=== PATIENT | male | born 1975 | race Caucasian/White ===

== ENCOUNTER 2019-06-29 07:57 | Emergency (ER) | payer BC ==
[2019-06-29] MEDS ORDERED: Albuterol/Ipratropium 3.0-0.5 MG/3 ML Neb Soln ONE (08:09)
[2019-06-29] MEDS ORDERED: Albuterol/Ipratropium 3.0-0.5 MG/3 ML Neb Soln NEB ONE (08:09)
--- NOTE | 2019-06-29 08:13 | EDM.PDOC ---
ED HPI GENERAL MEDICAL PROBLEM - General Chief Complaint: Respiratory Problem Stated Complaint: SHORTNESS OF BREATH, VIOLENT COUGH Time Seen by Provider: 06/29/19 10:04 - History of Present Illness INITIAL COMMENTS - FREE TEXT/NARRATIVE: HISTORY AND PHYSICAL: History of present illness: Patient's 43-year-old white male with no significant past medical history except concern of cough and shortness of breath 1 week he states he had some chest tightness with this he is nonsmoker he denies known cardiac disease high cholesterol family history denies drugs. Review of systems: As per history of present illness and below otherwise all systems reviewed and negative. Past medical history: As per history of present illness and as reviewed below otherwise noncontributory. Surgical history: As per history of present illness and as reviewed below otherwise noncontributory. Social history: No reported history of drug or alcohol abuse. Family history: As per history of present illness and as reviewed below otherwise noncontributory. Physical exam: HEENT: Atraumatic, normocephalic, pupils reactive, negative for conjunctival pallor or scleral icterus, mucous membranes moist, throat clear, neck supple, nontender, trachea midline. Lungs: Diminished, breath sounds equal bilaterally, chest nontender. Heart: S1S2, regular, negative for clicks, rubs, or JVD. Abdomen: Soft, nondistended, nontender. Negative for masses or hepatosplenomegaly. Negative for costovertebral tenderness. Pelvis: Stable nontender. Genitourinary: Deferred. Rectal: Deferred. Extremities: Atraumatic, negative for cords or calf pain. Neurovascular unremarkable. Neuro: Awake, alert, oriented. Cranial nerves II through XII unremarkable. Cerebellum unremarkable. Motor and sensory unremarkable throughout. Exam nonfocal. Diagnostics: CBC CMP troponin PT/INR chest x-ray EKG influenza screen BNP Therapeutics: Albuterol ipratropium nebulizer Impression: #1 pneumonitis Definitive disposition and diagnosis as appropriate pending reevaluation and review of above. - Related Data Allergies Allergy/AdvReac Type Severity Reaction Status Date / Time No Known Allergies Allergy Verified 06/29/19 08:09 Home Meds: Home Meds Testosterone [Androderm] 1 each INJECT WEEKLY 06/29/19 [History] ED ROS GENERAL - Review of Systems Review Of Systems: Comprehensive ROS is negative, except as noted in HPI. ED EXAM, GENERAL - Physical Exam Exam: See Below (See dictation) Course - Vital Signs Last Recorded V/S: Last Vital Signs Temp 36.3 C 06/29/19 08:11 Pulse 99 06/29/19 08:11 Resp 18 06/29/19 08:11 BP 152/79 H 06/29/19 08:11 Pulse Ox 98 06/29/19 08:11 - Orders/Labs/Meds Orders: Active Orders 24 hr Category Date Time Status EKG Documentation Completion [RC] STAT Care 06/29/19 08:08 Active RT Aerosol Therapy [RC] ASDIRECTED Care 06/29/19 08:09 Active B-TYPE NATRIURETIC PEPTIDE,BNP [CHEM] Stat Lab 06/29/19 08:28 Received SUAD NOEL NUCLEIC ACID AMP [MREF] Stat Lab 06/29/19 08:13 Received UA RFX STEPHANIA AND CULT IF INDIC [URIN] Stat Lab 06/29/19 08:08 Ordered Labs: Laboratory Tests 06/29/19 06/29/19 06/29/19 Range/Units 08:28 08:28 08:28 WBC 10.62 (4.0-11.0) K/uL RBC 5.87 (4.50-5.90) M/uL Hgb 16.6 (13.0-17.0) g/dL Hct 48.6 (38.0-50.0) % MCV 82.8 (80.0-98.0) fL MCH 28.3 (27.0-32.0) pg MCHC 34.2 (31.0-37.0) g/dL RDW Std Deviation 44.0 (28.0-62.0) fl RDW Coeff of Akin 15 (11.0-15.0) % Plt Count 203 (150-400) K/uL MPV 10.40 (7.40-12.00) fL Neut % (Auto) 68.9 (48.0-80.0) % Lymph % (Auto) 20.5 (16.0-40.0) % Rush % (Auto) 9.0 (0.0-15.0) % Eos % (Auto) 1.4 (0.0-7.0) % Baso % (Auto) 0.2 (0.0-1.5) % Neut # (Auto) 7.3 H (1.4-5.7) K/uL Lymph # (Auto) 2.2 (0.6-2.4) K/uL Rush # (Auto) 1.0 H (0.0-0.8) K/uL Eos # (Auto) 0.2 (0.0-0.7) K/uL Baso # (Auto) 0.0 (0.0-0.1) K/uL Nucleated RBC % 0.0 /100WBC Nucleated RBCs # 0 K/uL INR 0.93 Sodium 137 (136-148) mmol/L Potassium 3.8 (3.5-5.1) mmol/L Chloride 102 (98-107) mmol/L Carbon Dioxide 26.3 (21.0-32.0) mmol/L BUN 11 (7.0-18.0) mg/dL Creatinine 1.3 (0.8-1.3) mg/dL Est Cr Clr Drug Dosing 82.08 mL/min Estimated GFR (MDRD) > 60.0 ml/min Glucose 103 (74-106) mg/dL Calcium 9.1 (8.5-10.1) mg/dL Total Bilirubin 0.7 (0.2-1.0) mg/dL AST 28 (15-37) IU/L ALT 39 (14-63) IU/L Alkaline Phosphatase 31 L (46-116) U/L Troponin I < 0.050 (0.000-0.056) ng/mL Total Protein 8.0 (6.4-8.2) g/dL Albumin 3.7 (3.4-5.0) g/dL Globulin 4.3 H (2.6-4.0) g/dL Albumin/Globulin Ratio 0.9 (0.9-1.6) Meds: Medications Discontinued Medications Generic Name Dose Route Start Last Admin Trade Name Freq PRN Reason Stop Dose Admin Acetaminophen/Codeine Phosphate 10 ml 06/29/19 09:13 06/29/19 09:18 Tylenol/Codeine 120-12 Mg/5 Ml PO 06/29/19 09:14 10 ml ONETIME ONE Administration Albuterol/Ipratropium 3 ml 06/29/19 08:09 06/29/19 08:11 Duoneb 3.0-0.5 Mg/3 Ml NEB 06/29/19 08:10 3 ml ONETIME ONE Administration Albuterol/Ipratropium Confirm 06/29/19 08:09 06/29/19 08:22 Duoneb 3.0-0.5 Mg/3 Ml Administered 06/29/19 08:10 Not Given Dose 3 ml .ROUTE .STK-MED ONE Ketorolac Tromethamine 60 mg 06/29/19 09:13 06/29/19 09:18 Toradol IM 06/29/19 09:14 60 mg ONETIME ONE Administration Departure - Departure Time of Disposition: 10:04 Disposition: Home, Self-Care 01 Condition: Good Clinical Impression: Pneumonitis - Discharge Information Referrals: Roland Aranda MD [Primary Care Provider] - Forms: ED Department Discharge Additional Instructions: The following information is given to patients seen in the emergency department who are being discharged to home. This information is to outline your options for follow-up care. We provide all patients seen in our emergency department with a follow-up referral. The need for follow-up, as well as the timing and circumstances, are variable depending upon the specifics of your emergency department visit. If you don't have a primary care physician on staff, we will provide you with a referral. We always advise you to contact your personal physician following an emergency department visit to inform them of the circumstance of the visit and for follow-up with them and/or the need for any referrals to a consulting specialist. The emergency department will also refer you to a specialist when appropriate. This referral assures that you have the opportunity for followup care with a specialist. All of these measure are taken in an effort to provide you with optimal care, which includes your followup. Under all circumstances we always encourage you to contact your private physician who remains a resource for coordinating your care. When calling for followup care, please make the office aware that this follow-up is from your recent emergency room visit. If for any reason you are refused follow-up, please contact the [facility] emergency department at and asked to speak to the emergency department charge nurse. Z-Sandoval Medrol Phenergan With Codeine albuterol as prescribed follow-up primary medical doctor as needed as discussed and return as needed as discussed - My Orders Last 24 Hours: My Active Orders 06/29/19 08:08 EKG Documentation Completion [RC] STAT UA RFX STEPHANIA AND CULT IF INDIC [URIN] Stat 06/29/19 08:09 RT Aerosol Therapy [RC] ASDIRECTED 06/29/19 08:13 BORD PERTUSS NUCLEIC ACID AMP [MREF] Stat 06/29/19 08:28 B-TYPE NATRIURETIC PEPTIDE,BNP [CHEM] Stat - Assessment/Plan Last 24 Hours: My Active Orders 06/29/19 08:08 EKG Documentation Completion [RC] STAT UA RFX STEPHANIA AND CULT IF INDIC [URIN] Stat 06/29/19 08:09 RT Aerosol Therapy [RC] ASDIRECTED 06/29/19 08:13 BORD PERTUSS NUCLEIC ACID AMP [MREF] Stat 06/29/19 08:28 B-TYPE NATRIURETIC PEPTIDE,BNP [CHEM] Stat
--- NOTE | 2019-06-29 08:53 | CR ---
INDICATION: Cough and congestion TECHNIQUE: Chest 1 view COMPARISON: None FINDINGS: Cardiovascular and mediastinum: Heart size and vasculature are normal in caliber and appearance. Lungs and pleural spaces: Lungs are clear. No sign of infiltrate or mass. No sign of pleural effusion. No pneumothorax. Bones and soft tissues: No significant findings. IMPRESSION: Unremarkable chest. Dictated by Leobardo Mays MD @ Jun 29 2019 8:51AM Signed by Dr. Leobardo Mays @ Jun 29 2019 8:52AM
[2019-06-29 09:10] LABS: BLOOD UREA NITROGEN,BUN 11 mg/dL (7.0-18.0); CARBON DIOXIDE,CO2 26.3 mmol/L (21.0-32.0); CHLORIDE,CL 102 mmol/L (98-107); GLUCOSE RANDOM 103 mg/dL (74-106); POTASSIUM,K 3.8 mmol/L (3.5-5.1); SODIUM,NA 137 mmol/L (136-148)
[2019-06-29] MEDS ORDERED: Ketorolac 60 MG/2 ML SDV IM ONE (09:13)
[2019-06-29] MEDS ORDERED: Acetaminophen/Codeine 120-12 MG/5 ML Soln 5 ML UD Cup PO ONE (09:13)
== END 2019-06-29 10:18 | disposition home or self-care (01) ==
LOC: MW.ED 07:57
DX: J18.9 Pneumonia, unspecified organism (principal)
CPT/HCPCS: 36415; 71045; 80053; 83880; 84484; 85025; 85610; 87804; 93005; 94640; 96372; 99285; A9270; J1885; 87798; 99283; J7620-GY

== ENCOUNTER 2019-10-26 17:57 | Inpatient (IN) | payer OTHER, BC ==
[2019-10-26] MEDS ORDERED: Sodium Chloride 0.9% 1,000 ML IV ONE (18:21)
[2019-10-26] MEDS ORDERED: Acetaminophen 500 MG Tab PO ONE (18:22)
[2019-10-26] MEDS ORDERED: Codeine/Promethazine 10-6.25 MG/5 ML Syrup 5 ML UD Cup PO STA (18:25)
--- NOTE | 2019-10-26 18:29 | EDM.PDOC ---
ED HPI GENERAL MEDICAL PROBLEM - General Chief Complaint: Respiratory Problem Stated Complaint: VIRUS PT Time Seen by Provider: 10/26/19 18:01 Source of Information: Reports: Patient History Limitations: Reports: No Limitations - History of Present Illness INITIAL COMMENTS - FREE TEXT/NARRATIVE: HISTORY AND PHYSICAL: History of present illness: Patient is a 44-year-old male who presents to the emergency room with complaints of cough, fever and shortness of breath over the past 4 days. Patient states last week he was in [place] for approximately 7 days during COVID- 19 pandemic (was exposed to "a lot of Europeans"). He returned home on 2019, and started having symptoms the day after. Has had a reported TMAX of 102 at home, increased SOB, and mild midsternal chest pain which he attribute to all his vigorous coughing. States the chest pain is localized and does not radiate anywhere. Chest pain worsens with coughing. "I tried to stay home as long as I could" but reports symptoms have progressively gotten worse. He has been using [id number] products such as TheraFlu and cough and cold medications without any relief. Initially he presented to [facility] clinic and was being seen by Dr. Sheth. He has already had an influenza and send out COVID-19 screening. Patient denies any headache, change in vision, syncope or near syncope. Denies any chest pain, back pain, abdominal pain, nausea, vomiting , diarrhea, constipation or dysuria. Has not noted any blood in urine or stool. Patient had been eating and drinking appropriately. Review of systems: As per history of present illness and below otherwise all systems reviewed and negative. Past medical history: As per history of present illness and as reviewed below otherwise noncontributory. Surgical history: As per history of present illness and as reviewed below otherwise noncontributory. Social history: See social history for further information Family history: As per history of present illness and as reviewed below otherwise noncontributory. Physical exam: General: Well-developed and well-nourished 44-year-old male. Alert and oriented. Nontoxic-appearing and in no acute distress. HEENT: Atraumatic, normocephalic, pupils equal and reactive bilaterally, negative for conjunctival pallor or scleral icterus, mucous membranes moist, TMs normal bilaterally, throat clear, neck supple, nontender, trachea midline. No drooling or trismus noted. No meningeal signs. No hot potato voice noted. Lungs: Diminished throughout with auscultation, breath sounds equal bilaterally , chest nontender. Dry harsh cough noted. Heart: S1S2, tachycardia with regular rate and rhythm without overt murmur Abdomen: Soft, nondistended, nontender. Negative for masses or hepatosplenomegaly. Negative for costovertebral tenderness. Skin: Skin appears flushed. Intact, warm, dry. No lesions or rashes noted. Extremities: Atraumatic, moves all extremities per self without difficulty or deficits, negative for cords or calf pain. Neurovascular unremarkable. Neuro: Awake, alert, oriented. Cranial nerves II through XII unremarkable. Cerebellum unremarkable. Motor and sensory unremarkable throughout. Exam nonfocal. Notes: Chest x-ray findings suspicious bilateral bronchitis as well as early right lower lobe pneumonia and possible early left lower lobe pneumonia. Nodular densities within the right upper chest. Patient's lab work shows no significant findings. Did call and discussed this case with Dr. Galicia about admission. Additional CT has been added at this time (Dr Noel, radiologist, recommend CT chest without contrast). Medications have been ordered to be administered prior to going to the floor. Patient is aware of diagnostic findings and also aware that he will be under droplet/respiratory contact precautions as we are awaiting his COVID-[address] chest shows patchy area of increased density within both lungs with more confluent densities in the lung bases, worse on the right side. This representing multifocal pneumonia. Diagnostics: CBC, CMP, Lactic, BC x 2, CXR, Troponin, EKG, CT chest Note: Influenza and COVID-19 was ordered per [employer]: Oxygen, IV fluids, Acetaminophen, Phenergan w/ Codeine, Rocephin, Azithromycin Impression: Pneumonia Plan: Inpatient admission to Med/Surg with telemetry Definitive disposition and diagnosis as appropriate pending reevaluation and review of above. back Pain Score (Numeric/FACES): 5 - Related Data Allergies Allergy/AdvReac Type Severity Reaction Status Date / Time No Known Allergies Allergy Verified 10/26/19 18:10 Home Meds: Home Meds Testosterone [Androderm] 1 each INJECT WEEKLY 06/29/19 [History] Past Medical History - Past Health History Medical/Surgical History: Denies Medical/Surgical History HEENT History: Reports: None Cardiovascular History: Reports: None Respiratory History: Reports: None Gastrointestinal History: Reports: None Genitourinary History: Reports: None Musculoskeletal History: Reports: None Neurological History: Reports: None Psychiatric History: Reports: None Endocrine/Metabolic History: Reports: None Hematologic History: Reports: None Immunologic History: Reports: None Oncologic (Cancer) History: Reports: None Dermatologic History: Reports: None - Infectious Disease History Infectious Disease History: Reports: None - Past Surgical History Head Surgeries/Procedures: Reports: None HEENT Surgical History: Reports: None Cardiovascular Surgical History: Reports: None Respiratory Surgical History: Reports: None GI Surgical History: Reports: Appendectomy Male Surgical History: Reports: None Endocrine Surgical History: Reports: None Neurological Surgical History: Reports: None Musculoskeletal Surgical History: Reports: None Oncologic Surgical History: Reports: None Dermatological Surgical History: Reports: None Social & Family History - Family History Family Medical History: Noncontributory - Tobacco Use Smoking Status *Q: Never Smoker Second Hand Smoke Exposure: No - Caffeine Use Caffeine Use: Reports: None - Recreational Drug Use Recreational Drug Use: No ED ROS GENERAL - Review of Systems Review Of Systems: Comprehensive ROS is negative, except as noted in HPI. ED EXAM, GENERAL - Physical Exam Exam: See Below (See dictation) Course - Vital Signs Last Recorded V/S: Last Vital Signs Temp 100.6 F 10/26/19 20:35 Pulse 107 H 10/26/19 20:35 Resp 20 10/26/19 20:35 BP 111/65 10/26/19 20:35 Pulse Ox 95 10/26/19 20:35 - Orders/Labs/Meds Orders: Active Orders 24 hr Category Date Time Status Admission Status [Patient Status] [ADT] Stat ADT 10/26/19 20:01 Active EKG Documentation Completion [RC] STAT Care 10/26/19 18:29 Active Oxygen Therapy, ED [RC] ASDIRECTED Care 10/26/19 20:13 Active CULTURE BLOOD [BC] Stat Lab 10/26/19 18:30 Received CULTURE BLOOD [BC] Stat Lab 10/26/19 18:41 Received Azithromycin [Zithromax] 500 mg Med 10/26/19 20:15 Active Sodium Chloride 0.9% [Normal Saline (AdvBag)] 250 ml IV ONETIME Sodium Chloride 0.9% [Normal Saline] 1,000 ml Med 10/26/19 19:14 Active IV STAT Blood Culture x2 Reflex Set [OM.PC] Stat Oth 10/26/19 18:22 Ordered Medication Orders Sodium Chloride (Normal Saline) 1,000 mls @ 125 mls/hr IV STAT ONE Stop: 10/27/19 03:13 Last Admin: 10/26/19 19:41 Dose: 125 mls/hr Azithromycin 500 mg/ Sodium (Chloride) 250 mls @ 250 mls/hr IV ONETIME [facility] Labs: Laboratory Tests 10/26/19 10/26/19 10/26/19 Range/Units 18:40 18:40 18:40 WBC 4.24 (4.0-11.0) K/uL RBC 6.26 H (4.50-5.90) M/uL Hgb 18.0 H (13.0-17.0) g/dL Hct 51.1 H (38.0-50.0) % MCV 81.6 (80.0-98.0) fL MCH 28.8 (27.0-32.0) pg MCHC 35.2 (31.0-37.0) g/dL RDW Std Deviation 39.0 (28.0-62.0) fl RDW Coeff of Akin 13 (11.0-15.0) % Plt Count 93 L (150-400) K/uL MPV 10.90 (7.40-12.00) fL Neut % (Auto) 70.7 (48.0-80.0) % Lymph % (Auto) 24.1 (16.0-40.0) % [place] % (Auto) 5.0 (0.0-15.0) % Eos % (Auto) 0.2 (0.0-7.0) % Baso % (Auto) 0.0 (0.0-1.5) % Neut # (Auto) 3.0 (1.4-5.7) K/uL Lymph # (Auto) 1.0 (0.6-2.4) K/uL [place] # (Auto) 0.2 (0.0-0.8) K/uL Eos # (Auto) 0.0 (0.0-0.7) K/uL Baso # (Auto) 0.0 (0.0-0.1) K/uL Nucleated RBC % 0.0 /100WBC Nucleated RBCs # 0 K/uL Lactate 1.4 (0.20-2.00) mmol/L Sodium 135 L (136-148) mmol/L Potassium 3.7 (3.5-5.1) mmol/L Chloride 98 (98-107) mmol/L Carbon Dioxide 28.8 (21.0-32.0) mmol/L BUN 16 (7.0-18.0) mg/dL Creatinine 1.3 (0.8-1.3) mg/dL Est Cr Clr Drug Dosing 81.25 mL/min Estimated GFR (MDRD) > 60.0 ml/min Glucose 87 (74-106) mg/dL Calcium 7.9 L (8.5-10.1) mg/dL Total Bilirubin 0.6 (0.2-1.0) mg/dL AST 53 H (15-37) IU/L ALT 48 (14-63) IU/L Alkaline Phosphatase 49 (46-116) U/L Troponin I (0.000-0.056) ng/mL Total Protein 6.9 (6.4-8.2) g/dL Albumin 3.1 L (3.4-5.0) g/dL Globulin 3.8 (2.6-4.0) g/dL Albumin/Globulin Ratio 0.8 L (0.9-1.6) 03/25/20 Range/Units 18:40 WBC (4.0-11.0) K/uL RBC (4.50-5.90) M/uL Hgb (13.0-17.0) g/dL Hct (38.0-50.0) % MCV (80.0-98.0) fL MCH (27.0-32.0) pg MCHC (31.0-37.0) g/dL RDW Std Deviation (28.0-62.0) fl RDW Coeff of Akin (11.0-15.0) % Plt Count (150-400) K/uL MPV (7.40-12.00) fL Neut % (Auto) (48.0-80.0) % Lymph % (Auto) (16.0-40.0) % [place]enden % (Auto) (0.0-15.0) % Eos % (Auto) (0.0-7.0) % Baso % (Auto) (0.0-1.5) % Neut # (Auto) (1.4-5.7) K/uL Lymph # (Auto) (0.6-2.4) K/uL [place]enden # (Auto) (0.0-0.8) K/uL Eos # (Auto) (0.0-0.7) K/uL Baso # (Auto) (0.0-0.1) K/uL Nucleated RBC % /100WBC Nucleated RBCs # K/uL Lactate (0.20-2.00) mmol/L Sodium (136-148) mmol/L Potassium (3.5-5.1) mmol/L Chloride (98-107) mmol/L Carbon Dioxide (21.0-32.0) mmol/L BUN (7.0-18.0) mg/dL Creatinine (0.8-1.3) mg/dL Est Cr Clr Drug Dosing mL/min Estimated GFR (MDRD) ml/min Glucose (74-106) mg/dL Calcium (8.5-10.1) mg/dL Total Bilirubin (0.2-1.0) mg/dL AST (15-37) IU/L ALT (14-63) IU/L Alkaline Phosphatase (46-116) U/L Troponin I < 0.050 (0.000-0.056) ng/mL Total Protein (6.4-8.2) g/dL Albumin (3.4-5.0) g/dL Globulin (2.6-4.0) g/dL Albumin/Globulin Ratio (0.9-1.6) Meds: Medications Generic Name Dose Route Start Last Admin Trade Name Freq PRN Reason Stop Dose Admin Sodium Chloride 1,000 mls @ 125 mls/hr 10/26/19 19:14 10/26/19 19:41 Normal Saline IV 10/27/19 03:13 125 mls/hr STAT ONE Administration Azithromycin 500 mg/ Sodium 250 mls @ 250 mls/hr 10/26/19 20:15 Chloride IV ONETIME SUNITHA Discontinued Medications Generic Name Dose Route Start Last Admin Trade Name Freq PRN Reason Stop Dose Admin Acetaminophen 1,000 mg 10/26/19 18:22 10/26/19 18:51 Tylenol Extra Strength PO 10/26/19 18:23 1,000 mg ONETIME ONE Administration Azithromycin 1,000 mg 10/26/19 20:15 Zithromax PO Q24H SUNITHA Sodium Chloride 1,000 mls @ 999 mls/hr 10/26/19 18:21 10/26/19 18:40 Normal Saline IV 10/26/19 19:21 999 mls/hr STAT ONE Administration Ceftriaxone Sodium/Dextrose 1 50 mls @ 100 mls/hr 10/26/19 20:02 10/26/19 20: 10 gm/ Premix IV 10/26/19 20:31 100 mls/hr ONETIME ONE Administration Ketorolac Tromethamine 30 mg 10/26/19 19:44 10/26/19 19:56 Toradol IVPUSH 10/26/19 19:45 30 mg ONETIME ONE Administration Promethazine HCl/Codeine 10 ml 10/26/19 18:25 10/26/19 18:51 Phenergan With Codeine PO 10/26/19 18:26 10 ml NOW STA Administration Departure - Departure Time of Disposition: 20:09 Disposition: Admitted As Inpatient 68 Clinical Impression: Pneumonia Qualifiers: Pneumonia type: due to unspecified organism Laterality: bilateral Lung location : lower lobe of lung Qualified Code(s): J18.9 - Pneumonia, unspecified organism - Discharge Information Forms: ED Department Discharge Sepsis Event Note - Evaluation Sepsis Screening Result: No Definite Risk - Focused Exam Vital Signs: Vital Signs Temp Temp Pulse Resp BP Pulse Ox 10/26/19 20:35 100.6 F 107 H 20 111/65 95 10/26/19 19:43 102.7 F H 117 H 23 H 133/52 L 94 L 10/26/19 19:21 102.7 F H 10/26/19 19:00 100.9 F H 114 H 22 H 146/84 H 96 10/26/19 18:51 100.9 F H 10/26/19 18:07 103.4 F H 135 H 20 144/93 H 94 L Date Exam was Performed: 10/26/19 Time Exam was Performed: 21:08 - My Orders Last 24 Hours: My Active Orders 10/26/19 18:22 Blood Culture x2 Reflex Set [OM.PC] Stat 10/26/19 18:29 EKG Documentation Completion [RC] STAT 10/26/19 18:30 CULTURE BLOOD [BC] Stat 10/26/19 18:41 CULTURE BLOOD [BC] Stat 10/26/19 19:14 Sodium Chloride 0.9% [Normal Saline] 1,000 ml IV STAT 10/26/19 20:01 Admission Status [Patient Status] [ADT] Stat 10/26/19 20:13 Oxygen Therapy, ED [RC] ASDIRECTED 10/26/19 20:15 Azithromycin [Zithromax] 500 mg Sodium Chloride 0.9% [Normal Saline (AdvBag)] 250 ml IV ONETIME - Assessment/Plan Last 24 Hours: My Active Orders 10/26/19 18:22 Blood Culture x2 Reflex Set [OM.PC] Stat 10/26/19 18:29 EKG Documentation Completion [RC] STAT 10/26/19 18:30 CULTURE BLOOD [BC] Stat 10/26/19 18:41 CULTURE BLOOD [BC] Stat 10/26/19 19:14 Sodium Chloride 0.9% [Normal Saline] 1,000 ml IV STAT 10/26/19 20:01 Admission Status [Patient Status] [ADT] Stat 10/26/19 20:13 Oxygen Therapy, ED [RC] ASDIRECTED 10/26/19 20:15 Azithromycin [Zithromax] 500 mg Sodium Chloride 0.9% [Normal Saline (AdvBag)] 250 ml IV ONETIME
[2019-10-26 19:34] LABS: BLOOD UREA NITROGEN,BUN 16 mg/dL (7.0-18.0); CARBON DIOXIDE,CO2 28.8 mmol/L (21.0-32.0); CHLORIDE,CL 98 mmol/L (98-107); GLUCOSE RANDOM 87 mg/dL (74-106); POTASSIUM,K 3.7 mmol/L (3.5-5.1); SODIUM,NA 135 mmol/L (136-148)
[2019-10-26] MEDS: Sodium Chloride 0.9% 1,000 ML IV ONE ×2 (19:41→23:12)
[2019-10-26] MEDS ORDERED: Ketorolac 30 MG/ML SDV IVPUSH ONE (19:44)
--- NOTE | 2019-10-26 19:50 | CR ---
Chest: 2 views of the chest were obtained. Comparison: Prior chest x-ray of 06/29/19. Slight increasing density within the right lung base is noted. Possible minimal increased density behind the left heart within the left lung base is also noted. Central lung markings are also minimally increased. Focal nodular density is noted within the right upper lung. Apical pleural thickening is seen. Heart size appears at the upper limits of normal. Bony structures are intact. Impression: 1. Findings suspicious for bilateral bronchitis as well as early right lower lobe pneumonia and possible early left lower lobe pneumonia. 2. Nodular density within the right upper chest. Recommend follow-up chest x-ray to see if this finding persists then warranting further testing. 3. Heart size at the upper limits of normal. Diagnostic code #3 This report was dictated in MDT
[2019-10-26] MEDS ORDERED: cefTRIAXone 1 GM in Premix Bag 1 BAG IV ONE (20:02)
[2019-10-26] MEDS ORDERED: Azithromycin 250 MG Tab PO SCH (20:15)
--- NOTE | 2019-10-26 21:05 | CT ---
CT chest Technique: Multiple axial sections through the chest were obtained. Intravenous contrast not utilized. Comparison: Prior chest x-ray performed earlier on the same day (7:24 PM. Findings: Small scattered areas of increased density within both upper lungs are seen. Nodule noted on chest x-ray is felt to correlate to one of the small areas of increased density. More confluent increased density is noted posteriorly within both lung bases, worse on the right side. Slight areas of increased density is noted within the right middle lobe. Mediastinum and hilar regions appear within normal limits. Aorta shows no aneurysm. No pericardial thickening is seen. Small low density finding is noted within the right lobe of the liver which has Hounsfield unit measurements of a cyst and measures approximately 9 mm. Bone window settings were reviewed which shows no acute osseous finding. Impression: 1. Patchy areas of increased density within both lungs with more confluent densities within the lung bases, worse on the right side. Findings are most likely are infectious representing multifocal pneumonia. 2. No nodule is seen within the right upper lung as noted on chest x-ray. This nodule is felt to correlate with one of these parenchymal densities. 3. No other acute findings are seen on noncontrast CT study of the chest. Diagnostic code #3 This report was dictated in MDT
[2019-10-26] MEDS: Azithromycin 500 MG in Sodium Chloride 0.9% 250 ML IV SCH (21:17)
[2019-10-26] MEDS ORDERED: Albuterol/Ipratropium 3.0-0.5 MG/3 ML Neb Soln NEB PRN (22:05)
[2019-10-26] MEDS ORDERED: Lactated Ringers 1,000 ML IV SCH (22:15)
--- NOTE | 2019-10-26 22:36 | PCM.HP.2 ---
H&P History of Present Illness - General Date of Service: 10/26/19 Admit Problem/Dx: Admission Diagnosis/Problem Admission Diagnosis/Problem Pneumonia Source of Information: Patient, Provider History Limitations: Reports: No Limitations - History of Present Illness Initial Comments - Free Text/Narative: Patient is a 44 y/o M with PMH of low testosterone on supplements, appendectomy , h/o recent travel from [place] came in with c/o SOB, coughing spells, fevers, chills, back pain, sweating. Patient came back to [facility] on Thursday and since then he has been having flu like symptoms which have gotten worse in last few days. also c/o associated loss of appetite and diarrhea, denied any sick contacts. Patient sent to see by his PCP today where he was found to be febrile and was checked for COVID-19 and sent to ER. In ER CT chest showed b/l multifocal pneumonia. Patient was started on IV antibiotics and admitted for further care. Denied chest pain, N/V, palpitations, syncope. Onset of Symptoms: Reports: Gradual Duration of Symptoms: Reports: Day(s): Location: Reports: Chest, Back Quality: Reports: Throbbing Severity: Moderate Improves with: Reports: None Worsens with: Reports: None back Pain Score (Numeric/FACES): 5 - Related Data Allergies/Adverse Reactions: Allergies Allergy/AdvReac Type Severity Reaction Status Date / Time No Known Allergies Allergy Verified 10/26/19 18:10 Home Medications: Home Meds Testosterone [Androderm] 1 each INJECT WEEKLY 06/29/19 [History] Past Medical History - Past Health History Medical/Surgical History: Denies Medical/Surgical History HEENT History: Reports: None Cardiovascular History: Reports: None Respiratory History: Reports: None Gastrointestinal History: Reports: None Genitourinary History: Reports: None Musculoskeletal History: Reports: None Neurological History: Reports: None Psychiatric History: Reports: None Endocrine/Metabolic History: Reports: None Hematologic History: Reports: None Immunologic History: Reports: None Oncologic (Cancer) History: Reports: None Dermatologic History: Reports: None - Infectious Disease History Infectious Disease History: Reports: None - Past Surgical History Head Surgeries/Procedures: Reports: None HEENT Surgical History: Reports: None Cardiovascular Surgical History: Reports: None Respiratory Surgical History: Reports: None GI Surgical History: Reports: Appendectomy Male Surgical History: Reports: None Endocrine Surgical History: Reports: None Neurological Surgical History: Reports: None Musculoskeletal Surgical History: Reports: None Oncologic Surgical History: Reports: None Dermatological Surgical History: Reports: None Social & Family History - Family History Family Medical History: Noncontributory - Tobacco Use Smoking Status *Q: Never Smoker Second Hand Smoke Exposure: No - Caffeine Use Caffeine Use: Reports: None - Recreational Drug Use Recreational Drug Use: No H&P Review of Systems - Review of Systems: Review Of Systems: See Below General: Reports: Fever, Chills, Malaise, Weakness, Fatigue, Night Sweats, Diaphoresis, Decreased Appetite Pulmonary: Reports: Shortness of Breath, Cough, Sputum. Denies: Wheezing, Hemoptysis Cardiovascular: Reports: Dyspnea on Exertion. Denies: Chest Pain, Palpitations , Orthopnea, PND, Edema, Lightheadedness Gastrointestinal: Reports: Anorexia, Diarrhea, Decreased Appetite. Denies: Abdominal Pain, Black Stool, Bloody Stool, Constipation Genitourinary: Denies: Dysuria, Frequency, Burning, Pain Musculoskeletal: Reports: Back Pain. Denies: Neck Pain, Shoulder Pain, Hand Pain, Leg Pain Skin: Reports: Erythema (from sunburn). Denies: Cyanosis, Jaundice, Mottled, Pallor Psychiatric: Denies: Confusion, Depression, Mood Lability Neurological: Denies: Confusion, Dizziness, Headache Exam - Exam Exam: See Below - Vital Signs Vital Signs: Last Vital Signs Temp 36.8 C 10/26/19 22:22 Pulse 99 10/26/19 22:22 Resp 20 10/26/19 22:22 BP 109/58 L 10/26/19 22:22 Pulse Ox 94 L 10/26/19 22:22 Weight: 92.986 kg - Exam Quality Assessment: Supplemental Oxygen General: Alert, Oriented Neck: Supple, Trachea Midline Lungs: Normal Respiratory Effort, Crackles, Rales Cardiovascular: Regular Rhythm, Normal S1, Normal S2, Tachycardia GI/Abdominal Exam: Normal Bowel Sounds, Soft, Non-Tender Peripheral Pulses: 3+: Dorsalis Pedis (L), Dorsalis Pedis (R) Skin: Warm - Patient Data Lab Results Last 24 hrs: Laboratory Results - last 24 hr 10/26/19 10/26/19 10/26/19 Range/Units 18:40 18:40 18:40 WBC 4.24 (4.0-11.0) K/uL RBC 6.26 H (4.50-5.90) M/uL Hgb 18.0 H (13.0-17.0) g/dL Hct 51.1 H (38.0-50.0) % MCV 81.6 (80.0-98.0) fL MCH 28.8 (27.0-32.0) pg MCHC 35.2 (31.0-37.0) g/dL RDW Std Deviation 39.0 (28.0-62.0) fl RDW Coeff of Akin 13 (11.0-15.0) % Plt Count 93 L (150-400) K/uL MPV 10.90 (7.40-12.00) fL Neut % (Auto) 70.7 (48.0-80.0) % Lymph % (Auto) 24.1 (16.0-40.0) % Hamilton % (Auto) 5.0 (0.0-15.0) % Eos % (Auto) 0.2 (0.0-7.0) % Baso % (Auto) 0.0 (0.0-1.5) % Neut # (Auto) 3.0 (1.4-5.7) K/uL Lymph # (Auto) 1.0 (0.6-2.4) K/uL Hamilton # (Auto) 0.2 (0.0-0.8) K/uL Eos # (Auto) 0.0 (0.0-0.7) K/uL Baso # (Auto) 0.0 (0.0-0.1) K/uL Nucleated RBC % 0.0 /100WBC Nucleated RBCs # 0 K/uL Lactate 1.4 (0.20-2.00) mmol/L Sodium 135 L (136-148) mmol/L Potassium 3.7 (3.5-5.1) mmol/L Chloride 98 (98-107) mmol/L Carbon Dioxide 28.8 (21.0-32.0) mmol/L BUN 16 (7.0-18.0) mg/dL Creatinine 1.3 (0.8-1.3) mg/dL Est Cr Clr Drug Dosing 81.25 mL/min Estimated GFR (MDRD) > 60.0 ml/min Glucose 87 (74-106) mg/dL Calcium 7.9 L (8.5-10.1) mg/dL Total Bilirubin 0.6 (0.2-1.0) mg/dL AST 53 H (15-37) IU/L ALT 48 (14-63) IU/L Alkaline Phosphatase 49 (46-116) U/L Troponin I (0.000-0.056) ng/mL Total Protein 6.9 (6.4-8.2) g/dL Albumin 3.1 L (3.4-5.0) g/dL Globulin 3.8 (2.6-4.0) g/dL Albumin/Globulin Ratio 0.8 L (0.9-1.6) 03/25/20 Range/Units 18:40 WBC (4.0-11.0) K/uL RBC (4.50-5.90) M/uL Hgb (13.0-17.0) g/dL Hct (38.0-50.0) % MCV (80.0-98.0) fL MCH (27.0-32.0) pg MCHC (31.0-37.0) g/dL RDW Std Deviation (28.0-62.0) fl RDW Coeff of Akin (11.0-15.0) % Plt Count (150-400) K/uL MPV (7.40-12.00) fL Neut % (Auto) (48.0-80.0) % Lymph % (Auto) (16.0-40.0) % Hamilton % (Auto) (0.0-15.0) % Eos % (Auto) (0.0-7.0) % Baso % (Auto) (0.0-1.5) % Neut # (Auto) (1.4-5.7) K/uL Lymph # (Auto) (0.6-2.4) K/uL Hamilton # (Auto) (0.0-0.8) K/uL Eos # (Auto) (0.0-0.7) K/uL Baso # (Auto) (0.0-0.1) K/uL Nucleated RBC % /100WBC Nucleated RBCs # K/uL Lactate (0.20-2.00) mmol/L Sodium (136-148) mmol/L Potassium (3.5-5.1) mmol/L Chloride (98-107) mmol/L Carbon Dioxide (21.0-32.0) mmol/L BUN (7.0-18.0) mg/dL Creatinine (0.8-1.3) mg/dL Est Cr Clr Drug Dosing mL/min Estimated GFR (MDRD) ml/min Glucose (74-106) mg/dL Calcium (8.5-10.1) mg/dL Total Bilirubin (0.2-1.0) mg/dL AST (15-37) IU/L ALT (14-63) IU/L Alkaline Phosphatase (46-116) U/L Troponin I < 0.050 (0.000-0.056) ng/mL Total Protein (6.4-8.2) g/dL Albumin (3.4-5.0) g/dL Globulin (2.6-4.0) g/dL Albumin/Globulin Ratio (0.9-1.6) Result Diagrams: 10/26/19 18:40 10/26/19 18:40 Sepsis Event Note - Evaluation Sepsis Screening Result: No Definite Risk - Focused Exam Vital Signs: Vital Signs Temp Temp Pulse Resp BP Pulse Ox Pulse Ox 10/26/19 22:22 36.8 C 99 20 109/58 L 94 L 10/26/19 22:01 37.8 C 94 20 117/67 96 10/26/19 21:18 101 H 21 H 110/58 L 93 L 10/26/19 21:00 96 10/26/19 20:35 38.1 C 107 H 20 111/65 95 10/26/19 19:43 39.3 C H 117 H 23 H 133/52 L 94 L 10/26/19 19:21 39.3 C H 10/26/19 19:00 38.3 C H 114 H 22 H 146/84 H 96 10/26/19 18:51 38.3 C H 10/26/19 18:07 39.7 C H 135 H 20 144/93 H 94 L Date Exam was Performed: 10/26/19 Time Exam was Performed: 22:40 - Problem List (1) Sepsis SNOMED Code(s): 46708473 ICD Code: A41.9 - SEPSIS, UNSPECIFIED ORGANISM Status: Acute Current Visit: Yes (2) Pneumonia SNOMED Code(s): 719273178 ICD Code: J18.9 - PNEUMONIA, UNSPECIFIED ORGANISM Status: Acute Current Visit: No Qualifiers: Pneumonia type: due to unspecified organism Laterality: bilateral Lung location: lower lobe of lung Qualified Code(s): J18.9 - Pneumonia, unspecified organism Problem List Initiated/Reviewed/Updated: Yes Orders Last 24hrs: Active Orders 24 hr Category Date Time Status Admission Status [Patient Status] [ADT] Stat ADT 10/26/19 20:01 Active Ambulate [RC] PER UNIT ROUTINE Care 10/26/19 22:06 Active Antiembolic Devices [RC] PER UNIT ROUTINE Care 10/26/19 22:07 Active Bedrest Bathroom Privileges [RC] ASDIRECTED Care 10/26/19 22:05 Active EKG Documentation Completion [RC] STAT Care 10/26/19 18:29 Active Oxygen Therapy [RC] PRN Care 10/26/19 22:05 Active Oxygen Therapy, ED [RC] ASDIRECTED Care 10/26/19 20:13 Active Pulse Oximetry [RC] PRN Care 10/26/19 22:06 Active RT Aerosol Therapy [RC] ASDIRECTED Care 10/26/19 22:08 Active VTE/DVT Education [RC] PER UNIT ROUTINE Care 10/26/19 22:05 Active Vital Signs [RC] Q4H Care 10/26/19 22:05 Active Clear Liquid Diet [DIET] Diet 10/27/19 Breakfast Active CRP [C-REACTIVE PROTEIN] [CHEM] Routine Lab 10/26/19 18:40 Received CULTURE BLOOD [BC] Stat Lab 10/26/19 18:30 Received CULTURE BLOOD [BC] Stat Lab 10/26/19 18:41 Received CULTURE SPUTUM + SMEAR [RM] Routine Lab 10/26/19 22:10 Ordered D Dimer [D-DIMER QUANTITATIVE] [COAG] Routine Lab 10/26/19 18:40 Received FERRITIN [CHEM] Routine Lab 10/26/19 18:40 Received LACTATE DEHYDROGENASE,LDH [CHEM] Routine Lab 10/26/19 18:40 Received SEDIMENTATION RATE AUTO [HEME] Routine Lab 10/26/19 18:40 Received UA W/MICROSCOPIC [URIN] Routine Lab 10/26/19 22:05 Ordered Acetaminophen [Tylenol] Med 10/26/19 23:30 Active 650 mg PO Q4H PRN Albuterol/Ipratropium [DuoNeb 3.0-0.5 MG/3 ML] Med 10/26/19 22:05 Active 3 ml NEB Q4HRRT PRN Azithromycin [Zithromax] 500 mg Med 10/26/19 20:15 Active Sodium Chloride 0.9% [Normal Saline (AdvBag)] 250 ml IV ONETIME Azithromycin [Zithromax] 500 mg Med 10/27/19 21:00 Active Sodium Chloride 0.9% [Normal Saline (AdvBag)] 250 ml IV Q24H Morphine Med 10/26/19 22:23 Active 1 mg IVPUSH Q4H PRN Sodium Chloride 0.9% [Normal Saline] 1,000 ml Med 10/26/19 19:14 Active IV STAT cefTRIAXone [Rocephin in Dextrose,Iso-Osm 1 GM/50 ML] 1 Med 10/27/19 20:00 Active gm Premix Bag 1 bag IV Q24H Blood Culture x2 Reflex Set [OM.PC] Stat Oth 10/26/19 18:22 Ordered Sequential Compression Device [OM.PC] Per Unit Routine Oth 10/26/19 22:06 Ordered Resuscitation Status Routine Resus Stat 10/26/19 22:05 Ordered Medication Orders Acetaminophen (Tylenol) 650 mg PO Q4H PRN PRN Reason: Pain (Mild 1-3)/fever Albuterol/Ipratropium (Duoneb 3.0-0.5 Mg/3 Ml) 3 ml NEB Q4HRRT PRN PRN Reason: Shortness Of Breath/wheezing Sodium Chloride (Normal Saline) 1,000 mls @ 125 mls/hr IV STAT ONE Stop: 10/27/19 03:13 Last Admin: 10/26/19 19:41 Dose: 125 mls/hr Azithromycin 500 mg/ Sodium (Chloride) 250 mls @ 250 mls/hr IV ONETIME SUNITHA Last Admin: 10/26/19 21:17 Dose: 250 mls/hr Ceftriaxone Sodium/Dextrose 1 (gm/ Premix) 50 mls @ 100 mls/hr IV Q24H SUNITHA Azithromycin 500 mg/ Sodium (Chloride) 250 mls @ 250 mls/hr IV Q24H SUNITHA Morphine Sulfate (Morphine) 1 mg IVPUSH Q4H PRN PRN Reason: Pain Assessment/Plan Comment:: 44 y/o M admitted for sepsis secondary to multifocal pneumonia cont IV azithromycin and ceftriaxone Cont IV fluids resuscitation, BP is stable so far Start DuoNebs PRN SOB Oxygen as needed Will check D-dimer, ferritin, LDH, ESR, CRP F/U on COVID_19 results Monitor and replete electrolytes SCD for DVT ppx Anticipate 2-3 midnight stays
[2019-10-26] MEDS: Morphine 2 MG/ML Syringe IVPUSH PRN (23:13)
[2019-10-27] MEDS: Acetaminophen 325 MG Tab PO PRN ×5 (03:55→22:04)
[2019-10-27] MEDS: Morphine 2 MG/ML Syringe IVPUSH PRN ×5 (03:56→22:06)
[2019-10-27] MEDS: guaiFENesin 100 MG/5 ML Soln 5 ML UD Cup PO PRN ×2 (05:31→09:38)
[2019-10-27 06:31] LABS: BLOOD UREA NITROGEN,BUN 17 mg/dL (7.0-18.0); CARBON DIOXIDE,CO2 26.6 mmol/L (21.0-32.0); CHLORIDE,CL 103 mmol/L (98-107); GLUCOSE RANDOM 88 mg/dL (74-106); POTASSIUM,K 3.9 mmol/L (3.5-5.1); SODIUM,NA 136 mmol/L (136-148)
[2019-10-27] MEDS ORDERED: Magnesium Sulfate/Water 2 GM in Premix Bag 1 BAG IV ONE (07:37)
[2019-10-27] MEDS ORDERED: Calcium Carbonate 500 MG Tab.Chew PO ONE (07:38)
[2019-10-27] MEDS ORDERED: Azithromycin 500 MG Vial IV SCH (09:00)
[2019-10-27] MEDS ORDERED: Sodium Chloride 0.9% 1,000 ML IV ONE (09:14)
[2019-10-27] MEDS: Phosphorus #1 250 MG Tab PO SCH ×2 (11:06→17:42)
[2019-10-27] MEDS: Albuterol/Ipratropium 4 GM Inhalation Spray INH PRN ×2 (11:25→16:31)
[2019-10-27] MEDS ORDERED: Hydroxychloroquine 200 MG Tab PO SCH (12:00)
[2019-10-27] MEDS: Sodium Chloride 0.9% 1,000 ML IV SCH ×2 (12:05→20:10)
--- NOTE | 2019-10-27 12:34 | PCM.PN ---
- General Info Date of Service: 10/27/19 Subjective Update: Reports breathing has not improved much overnight and still feels SOB and coughing a lot. Has not had any appetite. - Patient Data Vitals - Most Recent: Last Vital Signs Temp 99.2 F 10/27/19 07:25 Pulse 100 10/27/19 07:25 Resp 18 10/27/19 07:25 BP 93/48 L 10/27/19 07:25 Pulse Ox 95 10/27/19 07:25 Weight - Most Recent: 205 lb I&O - Last 24 Hours: Intake & Output 10/26/19 10/27/19 10/27/19 22:59 06:59 14:59 Intake Total 848 Output Total 450 Balance 398 Lab Results Last 24 Hours: Laboratory Results - last 24 hr 10/26/19 10/26/19 10/26/19 Range/Units 18:40 18:40 18:40 WBC 4.24 (4.0-11.0) K/uL RBC 6.26 H (4.50-5.90) M/uL Hgb 18.0 H (13.0-17.0) g/dL Hct 51.1 H (38.0-50.0) % MCV 81.6 (80.0-98.0) fL MCH 28.8 (27.0-32.0) pg MCHC 35.2 (31.0-37.0) g/dL RDW Std Deviation 39.0 (28.0-62.0) fl RDW Coeff of Akin 13 (11.0-15.0) % Plt Count 93 L (150-400) K/uL MPV 10.90 (7.40-12.00) fL Neut % (Auto) 70.7 (48.0-80.0) % Lymph % (Auto) 24.1 (16.0-40.0) % [place] % (Auto) 5.0 (0.0-15.0) % Eos % (Auto) 0.2 (0.0-7.0) % Baso % (Auto) 0.0 (0.0-1.5) % Neut # (Auto) 3.0 (1.4-5.7) K/uL Lymph # (Auto) 1.0 (0.6-2.4) K/uL [place] # (Auto) 0.2 (0.0-0.8) K/uL Eos # (Auto) 0.0 (0.0-0.7) K/uL Baso # (Auto) 0.0 (0.0-0.1) K/uL Nucleated RBC % 0.0 /100WBC Nucleated RBCs # 0 K/uL ESR (0-14) mm/hr D-Dimer, Quantitative (0.0-0.50) mg/L FEU Lactate 1.4 (0.20-2.00) mmol/L Sodium 135 L (136-148) mmol/L Potassium 3.7 (3.5-5.1) mmol/L Chloride 98 (98-107) mmol/L Carbon Dioxide 28.8 (21.0-32.0) mmol/L BUN 16 (7.0-18.0) mg/dL Creatinine 1.3 (0.8-1.3) mg/dL Est Cr Clr Drug Dosing 81.25 mL/min Estimated GFR (MDRD) > 60.0 ml/min Glucose 87 (74-106) mg/dL Calcium 7.9 L (8.5-10.1) mg/dL Phosphorus (2.6-4.7) mg/dL Magnesium (1.8-2.4) mg/dL Ferritin (26-388) ng/mL Total Bilirubin 0.6 (0.2-1.0) mg/dL AST 53 H (15-37) IU/L ALT 48 (14-63) IU/L Alkaline Phosphatase 49 (46-116) U/L Lactate Dehydrogenase (81-234) U/L Troponin I (0.000-0.056) ng/mL C-Reactive Protein (0.00-0.90) mg/dL Total Protein 6.9 (6.4-8.2) g/dL Albumin 3.1 L (3.4-5.0) g/dL Globulin 3.8 (2.6-4.0) g/dL Albumin/Globulin Ratio 0.8 L (0.9-1.6) Urine Color Urine Appearance Urine pH (5.0-8.0) Ur Specific [place] (1.001-1.035) Urine Protein (NEGATIVE) mg/dL Urine Glucose (UA) (NEGATIVE) mg/dL Urine Ketones (NEGATIVE) mg/dL Urine Occult Blood (NEGATIVE) Urine Nitrite (NEGATIVE) Urine Bilirubin (NEGATIVE) Urine Urobilinogen (<2.0) EU/dL Ur Leukocyte Esterase (NEGATIVE) Urine RBC (0-2/HPF) Urine WBC (0-5/HPF) Ur Epithelial Cells (NONE-FEW) Urine Bacteria (NEGATIVE) Urine Mucus (NONE-MOD) 10/26/19 10/26/19 10/26/19 Range/Units 18:40 18:40 18:40 WBC (4.0-11.0) K/uL RBC (4.50-5.90) M/uL Hgb (13.0-17.0) g/dL Hct (38.0-50.0) % MCV (80.0-98.0) fL MCH (27.0-32.0) pg MCHC (31.0-37.0) g/dL RDW Std Deviation (28.0-62.0) fl RDW Coeff of Akin (11.0-15.0) % Plt Count (150-400) K/uL MPV (7.40-12.00) fL Neut % (Auto) (48.0-80.0) % Lymph % (Auto) (16.0-40.0) % [place] % (Auto) (0.0-15.0) % Eos % (Auto) (0.0-7.0) % Baso % (Auto) (0.0-1.5) % Neut # (Auto) (1.4-5.7) K/uL Lymph # (Auto) (0.6-2.4) K/uL [place] # (Auto) (0.0-0.8) K/uL Eos # (Auto) (0.0-0.7) K/uL Baso # (Auto) (0.0-0.1) K/uL Nucleated RBC % /100WBC Nucleated RBCs # K/uL ESR 2 (0-14) mm/hr D-Dimer, Quantitative 0.97 H (0.0-0.50) mg/L FEU Lactate (0.20-2.00) mmol/L Sodium (136-148) mmol/L Potassium (3.5-5.1) mmol/L Chloride (98-107) mmol/L Carbon Dioxide (21.0-32.0) mmol/L BUN (7.0-18.0) mg/dL Creatinine (0.8-1.3) mg/dL Est Cr Clr Drug Dosing mL/min Estimated GFR (MDRD) ml/min Glucose (74-106) mg/dL Calcium (8.5-10.1) mg/dL Phosphorus (2.6-4.7) mg/dL Magnesium (1.8-2.4) mg/dL Ferritin (26-388) ng/mL Total Bilirubin (0.2-1.0) mg/dL AST (15-37) IU/L ALT (14-63) IU/L Alkaline Phosphatase (46-116) U/L Lactate Dehydrogenase (81-234) U/L Troponin I < 0.050 (0.000-0.056) ng/mL C-Reactive Protein (0.00-0.90) mg/dL Total Protein (6.4-8.2) g/dL Albumin (3.4-5.0) g/dL Globulin (2.6-4.0) g/dL Albumin/Globulin Ratio (0.9-1.6) Urine Color Urine Appearance Urine pH (5.0-8.0) Ur Specific [place] (1.001-1.035) Urine Protein (NEGATIVE) mg/dL Urine Glucose (UA) (NEGATIVE) mg/dL Urine Ketones (NEGATIVE) mg/dL Urine Occult Blood (NEGATIVE) Urine Nitrite (NEGATIVE) Urine Bilirubin (NEGATIVE) Urine Urobilinogen (<2.0) EU/dL Ur Leukocyte Esterase (NEGATIVE) Urine RBC (0-2/HPF) Urine WBC (0-5/HPF) Ur Epithelial Cells (NONE-FEW) Urine Bacteria (NEGATIVE) Urine Mucus (NONE-MOD) 10/26/19 10/26/19 10/27/19 Range/Units 18:40 18:40 02:50 WBC (4.0-11.0) K/uL RBC (4.50-5.90) M/uL Hgb (13.0-17.0) g/dL Hct (38.0-50.0) % MCV (80.0-98.0) fL MCH (27.0-32.0) pg MCHC (31.0-37.0) g/dL RDW Std Deviation (28.0-62.0) fl RDW Coeff of Akin (11.0-15.0) % Plt Count (150-400) K/uL MPV (7.40-12.00) fL Neut % (Auto) (48.0-80.0) % Lymph % (Auto) (16.0-40.0) % [place] % (Auto) (0.0-15.0) % Eos % (Auto) (0.0-7.0) % Baso % (Auto) (0.0-1.5) % Neut # (Auto) (1.4-5.7) K/uL Lymph # (Auto) (0.6-2.4) K/uL [place] # (Auto) (0.0-0.8) K/uL Eos # (Auto) (0.0-0.7) K/uL Baso # (Auto) (0.0-0.1) K/uL Nucleated RBC % /100WBC Nucleated RBCs # K/uL ESR (0-14) mm/hr D-Dimer, Quantitative (0.0-0.50) mg/L FEU Lactate (0.20-2.00) mmol/L Sodium (136-148) mmol/L Potassium (3.5-5.1) mmol/L Chloride (98-107) mmol/L Carbon Dioxide (21.0-32.0) mmol/L BUN (7.0-18.0) mg/dL Creatinine (0.8-1.3) mg/dL Est Cr Clr Drug Dosing mL/min Estimated GFR (MDRD) ml/min Glucose (74-106) mg/dL Calcium (8.5-10.1) mg/dL Phosphorus (2.6-4.7) mg/dL Magnesium (1.8-2.4) mg/dL Ferritin 1322 H (26-388) ng/mL Total Bilirubin (0.2-1.0) mg/dL AST (15-37) IU/L ALT (14-63) IU/L Alkaline Phosphatase (46-116) U/L Lactate Dehydrogenase 647 H (81-234) U/L Troponin I (0.000-0.056) ng/mL C-Reactive Protein 10.00 H (0.00-0.90) mg/dL Total Protein (6.4-8.2) g/dL Albumin (3.4-5.0) g/dL Globulin (2.6-4.0) g/dL Albumin/Globulin Ratio (0.9-1.6) Urine Color YELLOW Urine Appearance CLEAR Urine pH 6.0 (5.0-8.0) Ur Specific [place] 1.025 (1.001-1.035) Urine Protein NEGATIVE (NEGATIVE) mg/dL Urine Glucose (UA) NEGATIVE (NEGATIVE) mg/dL Urine Ketones NEGATIVE (NEGATIVE) mg/dL Urine Occult Blood NEGATIVE (NEGATIVE) Urine Nitrite NEGATIVE (NEGATIVE) Urine Bilirubin NEGATIVE (NEGATIVE) Urine Urobilinogen 0.2 (<2.0) EU/dL Ur Leukocyte Esterase NEGATIVE (NEGATIVE) Urine RBC NONE SEEN (0-2/HPF) Urine WBC 0-1 (0-5/HPF) Ur Epithelial Cells RARE (NONE-FEW) Urine Bacteria FEW (NEGATIVE) Urine Mucus LIGHT (NONE-MOD) 10/27/19 10/27/19 Range/Units 05:48 05:48 WBC 3.91 L (4.0-11.0) K/uL RBC 5.51 (4.50-5.90) M/uL Hgb 15.6 (13.0-17.0) g/dL Hct 45.6 (38.0-50.0) % MCV 82.8 (80.0-98.0) fL MCH 28.3 (27.0-32.0) pg MCHC 34.2 (31.0-37.0) g/dL RDW Std Deviation 39.4 (28.0-62.0) fl RDW Coeff of Akin 13 (11.0-15.0) % Plt Count 84 L (150-400) K/uL MPV 11.00 (7.40-12.00) fL Neut % (Auto) 70.8 (48.0-80.0) % Lymph % (Auto) 24.0 (16.0-40.0) % [place] % (Auto) 4.9 (0.0-15.0) % Eos % (Auto) 0.0 (0.0-7.0) % Baso % (Auto) 0.3 (0.0-1.5) % Neut # (Auto) 2.8 (1.4-5.7) K/uL Lymph # (Auto) 0.9 (0.6-2.4) K/uL [place] # (Auto) 0.2 (0.0-0.8) K/uL Eos # (Auto) 0.0 (0.0-0.7) K/uL Baso # (Auto) 0.0 (0.0-0.1) K/uL Nucleated RBC % 0.0 /100WBC Nucleated RBCs # 0 K/uL ESR (0-14) mm/hr D-Dimer, Quantitative (0.0-0.50) mg/L FEU Lactate (0.20-2.00) mmol/L Sodium 136 (136-148) mmol/L Potassium 3.9 (3.5-5.1) mmol/L Chloride 103 (98-107) mmol/L Carbon Dioxide 26.6 (21.0-32.0) mmol/L BUN 17 (7.0-18.0) mg/dL Creatinine 1.3 (0.8-1.3) mg/dL Est Cr Clr Drug Dosing 81.25 mL/min Estimated GFR (MDRD) > 60.0 ml/min Glucose 88 (74-106) mg/dL Calcium 7.3 L (8.5-10.1) mg/dL Phosphorus 2.3 L (2.6-4.7) mg/dL Magnesium 1.6 L (1.8-2.4) mg/dL Ferritin (26-388) ng/mL Total Bilirubin (0.2-1.0) mg/dL AST (15-37) IU/L ALT (14-63) IU/L Alkaline Phosphatase (46-116) U/L Lactate Dehydrogenase (81-234) U/L Troponin I (0.000-0.056) ng/mL C-Reactive Protein (0.00-0.90) mg/dL Total Protein (6.4-8.2) g/dL Albumin (3.4-5.0) g/dL Globulin (2.6-4.0) g/dL Albumin/Globulin Ratio (0.9-1.6) Urine Color Urine Appearance Urine pH (5.0-8.0) Ur Specific [place] (1.001-1.035) Urine Protein (NEGATIVE) mg/dL Urine Glucose (UA) (NEGATIVE) mg/dL Urine Ketones (NEGATIVE) mg/dL Urine Occult Blood (NEGATIVE) Urine Nitrite (NEGATIVE) Urine Bilirubin (NEGATIVE) Urine Urobilinogen (<2.0) EU/dL Ur Leukocyte Esterase (NEGATIVE) Urine RBC (0-2/HPF) Urine WBC (0-5/HPF) Ur Epithelial Cells (NONE-FEW) Urine Bacteria (NEGATIVE) Urine Mucus (NONE-MOD) Med Orders - Current: Current Medications Acetaminophen (Tylenol) 650 mg PO Q4H PRN PRN Reason: Pain (Mild 1-3)/fever Last Admin: 10/27/19 11:06 Dose: 650 mg Albuterol/Ipratropium (Combivent Respimat) 0 gm INH Q4H PRN PRN Reason: Dyspnea Last Admin: 10/27/19 11:25 Dose: 1 puff Guaifenesin/Codeine Phosphate (Robitussin Ac) 5 ml PO Q4H PRN PRN Reason: Cough Hydroxychloroquine Sulfate (Plaquenil) 400 mg PO BID COUNT INCLUDES THE [facility] Stop: 10/27/19 21:01 Azithromycin 500 mg/ Sodium (Chloride) 250 mls @ 250 mls/hr IV ONETIME SUNITHA Last Admin: 10/26/19 21:17 Dose: 250 mls/hr Ceftriaxone Sodium/Dextrose 1 (gm/ Premix) 50 mls @ 100 mls/hr IV Q24H SUNITHA Azithromycin 500 mg/ Sodium (Chloride) 250 mls @ 250 mls/hr IV Q24H SUNITHA Sodium Chloride (Normal Saline) 1,000 mls @ 125 mls/hr IV Q8H SUNITHA Morphine Sulfate (Morphine) 1 mg IVPUSH Q4H PRN PRN Reason: Pain Last Admin: 10/27/19 08:56 Dose: 1 mg Sodium Phosphate (Neutra-Phos) 250 mg PO QID SUNITHA Stop: 10/28/19 06:01 Last Admin: 10/27/19 11:06 Dose: 250 mg Discontinued Medications Acetaminophen (Tylenol Extra Strength) 1,000 mg PO ONETIME ONE Stop: 10/26/19 18:23 Last Admin: 10/26/19 18:51 Dose: 1,000 mg Albuterol/Ipratropium (Duoneb 3.0-0.5 Mg/3 Ml) 3 ml NEB Q4HRRT PRN PRN Reason: Shortness Of Breath/wheezing Last Admin: 10/26/19 23:12 Dose: 3 ml Azithromycin (Zithromax) 1,000 mg PO Q24H SUNITHA Calcium Carbonate/Glycine (Tums) 1,000 mg PO ONETIME ONE Stop: 10/27/19 07:39 Last Admin: 10/27/19 08:36 Dose: 1,000 mg Guaifenesin (Robitussin) 100 mg PO Q4H PRN PRN Reason: Cough Last Admin: 10/27/19 09:38 Dose: 100 mg Sodium Chloride (Normal Saline) 1,000 mls @ 999 mls/hr IV STAT ONE Stop: 10/26/19 19:21 Last Admin: 10/26/19 18:40 Dose: 999 mls/hr Sodium Chloride (Normal Saline) 1,000 mls @ 125 mls/hr IV STAT ONE Stop: 10/27/19 03:13 Last Admin: 10/26/19 23:12 Dose: 125 mls/hr Ceftriaxone Sodium/Dextrose 1 (gm/ Premix) 50 mls @ 100 mls/hr IV ONETIME ONE Stop: 10/26/19 20:31 Last Admin: 10/26/19 20:10 Dose: 100 mls/hr Lactated Ringer's (Ringers, Lactated) 1,000 mls @ 125 mls/hr IV ASDIRECTED COUNT INCLUDES THE [facility] Magnesium Sulfate 2 gm/ Premix 50 mls @ 50 mls/hr IV ONETIME ONE Stop: 10/27/19 08:36 Last Admin: 10/27/19 08:36 Dose: 50 mls/hr Sodium Chloride (Normal Saline) 1,000 mls @ 999 mls/hr IV STAT ONE Stop: 10/27/19 10:14 Last Admin: 10/27/19 09:37 Dose: 999 mls/hr Ketorolac Tromethamine (Toradol) 30 mg IVPUSH ONETIME ONE Stop: 10/26/19 19:45 Last Admin: 10/26/19 19:56 Dose: 30 mg Promethazine HCl/Codeine (Phenergan With Codeine) 10 ml PO NOW STA Stop: 10/26/19 18:26 Last Admin: 10/26/19 18:51 Dose: 10 ml - Exam General: Alert, Oriented, Cooperative, Other (fatigued) Lungs: Other (quiet breath sounds b/l, coughs when asked to take a deep breath.) Cardiovascular: Regular Rate, Regular Rhythm GI/Abdominal Exam: Normal Bowel Sounds, Soft, Non-Tender, No Distention Extremities: Normal Inspection, No Pedal Edema Skin: Warm, Dry, Intact Sepsis Event Note - Evaluation Sepsis Screening Result: No Definite Risk - Focused Exam Vital Signs: Vital Signs Temp Temp Pulse Resp BP Pulse Ox 10/27/19 07:25 99.2 F 100 18 93/48 L 95 10/27/19 05:35 97.8 F 10/27/19 04:06 100.0 F 112 H 19 106/49 L 96 10/27/19 03:55 100 F Date Exam was Performed: 10/27/19 Time Exam was Performed: 13:18 - Problem List Review Problem List Initiated/Reviewed/Updated: Yes - My Orders Last 24 Hours: My Active Orders 10/27/19 09:27 Albuterol/Ipratropium [Combivent Respimat] See Dose Instructions INH Q4H PRN 10/27/19 09:28 RT Post Treatment Assessment [RC] Click to Edit RT Pre-Treatment Assessment [RC] Click to Edit 10/27/19 12:00 Phosphorus #1 [Neutra-Phos] 250 mg PO QID 10/28/19 05:11 CBC WITH AUTO DIFF [HEME] AM COMPREHENSIVE METABOLIC PN,CMP [CHEM] AM MAGNESIUM [CHEM] AM PHOSPHORUS [CHEM] AM - Plan Plan:: Assessment and Plan: 1. Sepsis secondary to multifocal community acquired pneumonia with suspicion of COVID19: - Continue IV ceftriaxone and azithromycin, duonebs INH MDI q4 prn, IV NS 125 cc /hr and supplemental oxygen. D-dimer, ferritin and LDH are elevated. Will also order urine strep pneumonia and legionella antigen. As patient's respiratory status has not improved overnight and patient has had low blood pressure readings, will transfer patient to ICU for closer monitoring as patient is at risk for decompensating quickly. EKG on admission showed normal QT interval. Consulted eICU who recommended holding off on starting hydroxychloroquine at this time until COVID19 testing has resulted. 2. DVT prophylaxis: SCD's.
--- NOTE | 2019-10-27 15:14 | PN ---
[facility] Physician - Brief Progress [id number]/26/2020 12:46[facility] Kathryn Tompkins, [place] - DAXA (TROY) - DAXA ROYA MANTILLADate of Service 10/27/2019 12:46HPI/ Events of Note eICU admission [id number] male with no significant past medical history presented to hospital with shortness of breath. Patient mentions that over the last few days he has been havi ng worsening dyspnea, cough along with fevers chills and back pain. Patient mentions that he recentl y came from [place] about 4 days prior to admission. Patient was started on ceftriaxone and azithromy lai given his CT was significant for bilateral multifocal infiltrates. Patient was transferred to [facility] ICU for closer monitoring in the setting of being ruled out for COVID 19. Patient seen on camera la rick flat in bed, nasal canula/droplet mask present. No acute distress, occasional coughs. Vital sign s reviewedLabs/EMR/imagingAcute hypoxic respiratory failure-Secondary to PNA. Suspected viral vs bact erial-Agree with continuing CAP coverage for now. Can consider sending Legionella/Strep urine. If con sidering sending MRSA nares/Sputum cultures will need to be handled with special instructions given C OVID rule out. -Agree with COVID rule out. PPE and Isolation per institution policy. -Recommend holdi ng off on starting Plaquanil as patient is currently on 2L O2 and COVID has not resulted. We can assi st with further managent if patient if has worsening hypoxic resp failure. Combination of Plaquanil a nd Azithro can can cause QTc prolongation. -CT does show evidence of biapical scarring vs cystic lin ges, No cavitary lesion noted and patient did not have hemoptysis per EMR thus low suspicion for TB. -Recommend Mg replacment to keep >2. -Wean O2 as tolerated. DVT prophy- SCD's orderedGI prophy- Not indicatedInterventions Major-Hypoxemia - evaluation and management, Infection - evaluation and manag ement
[2019-10-27] MEDS: Codeine/guaiFENesin 10-100 MG/5 ML Syrup 5 ML Cup PO PRN ×2 (15:29→20:14)
[2019-10-27] MEDS: Benzonatate 100 MG Cap PO PRN (19:00)
[2019-10-27] MEDS: cefTRIAXone 1 GM in Premix Bag 1 BAG IV SCH (20:12)
[2019-10-27] MEDS: Azithromycin 500 MG in Sodium Chloride 0.9% 250 ML IV SCH (20:51)
[2019-10-27] MEDS ORDERED: Azithromycin 500 MG in Sodium Chloride 0.9% 250 ML IV SCH (21:00)
[2019-10-28] MEDS: Phosphorus #1 250 MG Tab PO SCH ×2 (00:15→05:39)
[2019-10-28] MEDS: Codeine/guaiFENesin 10-100 MG/5 ML Syrup 5 ML Cup PO PRN ×6 (00:15→22:05)
[2019-10-28] MEDS: Acetaminophen 325 MG Tab PO PRN ×2 (03:12→16:31)
[2019-10-28] MEDS: Benzonatate 100 MG Cap PO PRN ×3 (03:12→19:17)
[2019-10-28] MEDS: Morphine 2 MG/ML Syringe IVPUSH PRN ×5 (03:13→20:32)
[2019-10-28] MEDS: Sodium Chloride 0.9% 1,000 ML IV SCH ×3 (03:19→20:07)
[2019-10-28 06:53] LABS: BLOOD UREA NITROGEN,BUN 10 mg/dL (7.0-18.0); CARBON DIOXIDE,CO2 30.9 mmol/L (21.0-32.0); CHLORIDE,CL 107 mmol/L (98-107); GLUCOSE RANDOM 88 mg/dL (74-106); POTASSIUM,K 4.5 mmol/L (3.5-5.1); SODIUM,NA 141 mmol/L (136-148)
--- NOTE | 2019-10-28 08:03 | PCM.PN ---
- General Info Date of Service: 10/28/19 Subjective Update: Reports breathing and cough has improved a bit since yesterday. Still reports pain at lung bases. Denies fevers, chills, n/v/d. Tolerating PO diet and had bowel movement. - Patient Data Vitals - Most Recent: Last Vital Signs Temp 97.9 F 10/28/19 07:30 Pulse 87 10/28/19 07:30 Resp 19 10/28/19 07:30 BP 129/67 10/28/19 07:30 Pulse Ox 94 L 10/28/19 07:30 Weight - Most Recent: 225 lb 15.581 oz I&O - Last 24 Hours: Intake & Output 10/27/19 10/28/19 10/28/19 22:59 06:59 14:59 Intake Total 300 2287 Output Total 710 975 Balance -410 1312 Lab Results Last 24 Hours: Laboratory Results - last 24 hr 10/28/19 10/28/19 Range/Units 06:20 06:20 WBC 3.93 L (4.0-11.0) K/uL RBC 5.52 (4.50-5.90) M/uL Hgb 15.2 (13.0-17.0) g/dL Hct 46.6 (38.0-50.0) % MCV 84.4 (80.0-98.0) fL MCH 27.5 (27.0-32.0) pg MCHC 32.6 (31.0-37.0) g/dL RDW Std Deviation 41.6 (28.0-62.0) fl RDW Coeff of Akin 13 (11.0-15.0) % Plt Count 96 L (150-400) K/uL MPV 10.30 (7.40-12.00) fL Neut % (Auto) 66.9 (48.0-80.0) % Lymph % (Auto) 28.2 (16.0-40.0) % [place] % (Auto) 4.1 (0.0-15.0) % Eos % (Auto) 0.8 (0.0-7.0) % Baso % (Auto) 0.0 (0.0-1.5) % Neut # (Auto) 2.6 (1.4-5.7) K/uL Lymph # (Auto) 1.1 (0.6-2.4) K/uL [place] # (Auto) 0.2 (0.0-0.8) K/uL Eos # (Auto) 0.0 (0.0-0.7) K/uL Baso # (Auto) 0.0 (0.0-0.1) K/uL Nucleated RBC % 0.0 /100WBC Nucleated RBCs # 0 K/uL Sodium 141 (136-148) mmol/L Potassium 4.5 (3.5-5.1) mmol/L Chloride 107 (98-107) mmol/L Carbon Dioxide 30.9 (21.0-32.0) mmol/L BUN 10 (7.0-18.0) mg/dL Creatinine 1.2 (0.8-1.3) mg/dL Est Cr Clr Drug Dosing 88.02 mL/min Estimated GFR (MDRD) > 60.0 ml/min Glucose 88 (74-106) mg/dL Calcium 7.4 L (8.5-10.1) mg/dL Phosphorus 2.6 (2.6-4.7) mg/dL Magnesium 2.0 (1.8-2.4) mg/dL Total Bilirubin 0.5 (0.2-1.0) mg/dL AST 53 H (15-37) IU/L ALT 34 (14-63) IU/L Alkaline Phosphatase 33 L (46-116) U/L Total Protein 5.5 L (6.4-8.2) g/dL Albumin 2.3 L (3.4-5.0) g/dL Globulin 3.2 (2.6-4.0) g/dL Albumin/Globulin Ratio 0.7 L (0.9-1.6) Shane Results Last 24 Hours: Microbiology 10/26/19 18:41 Aerobic Blood Culture - Preliminary Blood - Venous - Lab Draw NO GROWTH AFTER 1 DAY Anaerobic Blood Culture - Preliminary NO GROWTH AFTER 1 DAY 10/26/19 18:30 Aerobic Blood Culture - Preliminary Blood - Venous NO GROWTH AFTER 1 DAY Anaerobic Blood Culture - Preliminary NO GROWTH AFTER 1 DAY Med Orders - Current: Current Medications Acetaminophen (Tylenol) 650 mg PO Q4H PRN PRN Reason: Pain (Mild 1-3)/fever Last Admin: 10/28/19 03:12 Dose: 650 mg Albuterol/Ipratropium (Combivent Respimat) 0 gm INH Q4H PRN PRN Reason: Dyspnea Last Admin: 10/27/19 16:31 Dose: 1 puff Benzonatate (Tessalon Perles) 200 mg PO TID PRN PRN Reason: Cough Last Admin: 10/28/19 03:12 Dose: 200 mg Guaifenesin/Codeine Phosphate (Robitussin Ac) 5 ml PO Q4H PRN PRN Reason: Cough Last Admin: 10/28/19 05:39 Dose: 5 ml Ceftriaxone Sodium/Dextrose 1 (gm/ Premix) 50 mls @ 100 mls/hr IV Q24H [facility] Last Admin: 10/27/19 20:12 Dose: 100 mls/hr Azithromycin 500 mg/ Sodium (Chloride) 250 mls @ 250 mls/hr IV Q24H [facility] Last Admin: 10/27/19 21:00 Dose: 250 mls/hr Sodium Chloride (Normal Saline) 1,000 mls @ 125 mls/hr IV Q8H [facility] Last Admin: 10/28/19 03:19 Dose: 125 mls/hr Morphine Sulfate (Morphine) 1 mg IVPUSH Q4H PRN PRN Reason: Pain Last Admin: 10/28/19 07:46 Dose: 1 mg Discontinued Medications Acetaminophen (Tylenol Extra Strength) 1,000 mg PO ONETIME ONE Stop: 10/26/19 18:23 Last Admin: 10/26/19 18:51 Dose: 1,000 mg Albuterol/Ipratropium (Duoneb 3.0-0.5 Mg/3 Ml) 3 ml NEB Q4HRRT PRN PRN Reason: Shortness Of Breath/wheezing Last Admin: 10/26/19 23:12 Dose: 3 ml Azithromycin (Zithromax) 1,000 mg PO Q24H [facility] Calcium Carbonate/Glycine (Tums) 1,000 mg PO ONETIME ONE Stop: 10/27/19 07:39 Last Admin: 10/27/19 08:36 Dose: 1,000 mg Guaifenesin (Robitussin) 100 mg PO Q4H PRN PRN Reason: Cough Last Admin: 10/27/19 09:38 Dose: 100 mg Hydroxychloroquine Sulfate (Plaquenil) 400 mg PO BID [facility] Stop: 10/27/19 21:01 Last Admin: 10/27/19 14:44 Dose: Not Given Sodium Chloride (Normal Saline) 1,000 mls @ 999 mls/hr IV STAT ONE Stop: 10/26/19 19:21 Last Admin: 10/26/19 18:40 Dose: 999 mls/hr Sodium Chloride (Normal Saline) 1,000 mls @ 125 mls/hr IV STAT ONE Stop: 10/27/19 03:13 Last Admin: 10/26/19 23:12 Dose: 125 mls/hr Ceftriaxone Sodium/Dextrose 1 (gm/ Premix) 50 mls @ 100 mls/hr IV ONETIME ONE Stop: 10/26/19 20:31 Last Admin: 10/26/19 20:10 Dose: 100 mls/hr Azithromycin 500 mg/ Sodium (Chloride) 250 mls @ 250 mls/hr IV ONETIME SUNITHA Last Admin: 10/27/19 20:51 Dose: 250 mls/hr Lactated Ringer's (Ringers, Lactated) 1,000 mls @ 125 mls/hr IV ASDIRECTED [facility] Magnesium Sulfate 2 gm/ Premix 50 mls @ 50 mls/hr IV ONETIME ONE Stop: 10/27/19 08:36 Last Admin: 10/27/19 08:36 Dose: 50 mls/hr Sodium Chloride (Normal Saline) 1,000 mls @ 999 mls/hr IV STAT ONE Stop: 10/27/19 10:14 Last Admin: 10/27/19 09:37 Dose: 999 mls/hr Ketorolac Tromethamine (Toradol) 30 mg IVPUSH ONETIME ONE Stop: 10/26/19 19:45 Last Admin: 10/26/19 19:56 Dose: 30 mg Promethazine HCl/Codeine (Phenergan With Codeine) 10 ml PO NOW STA Stop: 10/26/19 18:26 Last Admin: 10/26/19 18:51 Dose: 10 ml Sodium Phosphate (Neutra-Phos) 250 mg PO QID SUNITHA Stop: 10/28/19 06:01 Last Admin: 10/28/19 05:39 Dose: 250 mg - Exam General: Alert, Oriented, Cooperative, Mild Distress Lungs: Other (quiet breath sounds b/l, mild scattered rhonchi) Cardiovascular: Regular Rhythm, Tachycardia GI/Abdominal Exam: Normal Bowel Sounds, Soft, Non-Tender, No Distention Extremities: Normal Inspection, No Pedal Edema Skin: Warm, Dry, Intact Sepsis Event Note - Evaluation Sepsis Screening Result: Severe Sepsis Risk - Focused Exam Vital Signs: Vital Signs Temp Pulse Resp BP Pulse Ox 10/28/19 07:30 97.9 F 87 19 129/67 94 L 10/28/19 06:55 24 H 124/66 94 L 10/28/19 06:00 26 H 124/77 94 L 10/28/19 05:00 22 H 111/66 92 L 10/28/19 04:00 99.5 F 22 H 119/65 94 L 10/28/19 03:00 22 H 101/42 L 94 L 10/28/19 02:00 21 H 100/61 92 L 10/28/19 01:00 23 H 106/58 L 93 L 10/28/19 00:00 98.4 F 23 H 101/58 L 91 L 10/27/19 23:00 24 H 104/83 93 L 10/27/19 22:00 26 H 116/68 96 10/27/19 21:18 95 10/27/19 21:00 25 H 125/73 95 10/27/19 20:00 99.3 F 22 H 117/72 95 Date Exam was Performed: 10/28/19 Time Exam was Performed: 14:01 - Problem List Review Problem List Initiated/Reviewed/Updated: Yes - My Orders Last 24 Hours: My Active Orders 10/27/19 09:27 Albuterol/Ipratropium [Combivent Respimat] See Dose Instructions INH Q4H PRN 10/27/19 09:28 RT Post Treatment Assessment [RC] Click to Edit 10/27/19 18:19 Benzonatate [Tessalon Perles] 200 mg PO TID PRN - Plan Plan:: Assessment and Plan: 1. Sepsis secondary to multifocal community acquired pneumonia with suspicion of COVID19: - Continue IV ceftriaxone and switch to PO azithromycin, combivent INH MDI q4 prn, IV NS 125 cc/hr and supplemental oxygen. D-dimer, ferritin and LDH elevated. Urine strep pneumonia and legionella antigen were negative. Blood cultures negative. Sputum culture pending. - Since admission, patient has met sepsis criteria and lactate level was normal on admission. Patient's blood pressures have been stable. Due to pending COVID19 test results and possibility of worsening patient's respiratory status by administering multiple IV fluid boluses if in fact patient does have coronavirus, repeat lactate level has not been obtained. Patient blood pressure has been stable, he is afebrile and has normal mentation. Will continue to monitor. - Consulted eICU who recommended holding off on starting hydroxychloroquine at this time until COVID19 testing has resulted. 2. Acute hypoxic respiratory failure secondary to #1: - Continue supplemental oxygen and combivent INH MDI q4 prn. Patient still requiring 2 L NC. 3. DVT prophylaxis: SCD's.
[2019-10-28] MEDS: Albuterol/Ipratropium 4 GM Inhalation Spray INH PRN ×3 (08:26→17:36)
[2019-10-28] MEDS ORDERED: Sodium Chloride 0.9% 500 ML IV ONE (19:04)
[2019-10-28] MEDS: Azithromycin 250 MG Tab PO SCH (20:37)
[2019-10-28] MEDS: cefTRIAXone 1 GM in Premix Bag 1 BAG IV SCH (20:38)
[2019-10-29] MEDS: Acetaminophen 325 MG Tab PO PRN ×3 (00:16→20:26)
[2019-10-29] MEDS: Benzonatate 100 MG Cap PO PRN (03:34)
[2019-10-29] MEDS: Morphine 2 MG/ML Syringe IVPUSH PRN ×2 (03:36→20:19)
[2019-10-29] MEDS: Sodium Chloride 0.9% 1,000 ML IV SCH ×3 (03:40→19:57)
[2019-10-29 06:30] LABS: BLOOD UREA NITROGEN,BUN 7 mg/dL (7.0-18.0); CARBON DIOXIDE,CO2 32.5 mmol/L (21.0-32.0); CHLORIDE,CL 106 mmol/L (98-107); GLUCOSE RANDOM 94 mg/dL (74-106); POTASSIUM,K 4.8 mmol/L (3.5-5.1); SODIUM,NA 144 mmol/L (136-148)
[2019-10-29] MEDS: Codeine/guaiFENesin 10-100 MG/5 ML Syrup 5 ML Cup PO PRN ×2 (08:01→19:57)
--- NOTE | 2019-10-29 08:15 | PCM.PN ---
- General Info Date of Service: 10/29/19 Subjective Update: Reports coughing has improved since yesterday but still feels short of breath. Tolerating clear liquids well and would like to try advancing diet. Ambulated to bathroom for bowel movement but got short of breath. - Patient Data Vitals - Most Recent: Last Vital Signs Temp 97.5 F 10/29/19 03:45 Pulse 79 10/29/19 07:03 Resp 19 10/29/19 07:03 BP 121/71 10/29/19 07:03 Pulse Ox 95 10/29/19 07:03 Weight - Most Recent: 199 lb 15.348 oz I&O - Last 24 Hours: Intake & Output 10/28/19 10/29/19 10/29/19 22:59 06:59 14:59 Intake Total 3128 1633 Output Total 1700 1600 Balance 1428 33 Lab Results Last 24 Hours: Laboratory Results - last 24 hr 10/29/19 10/29/19 Range/Units 06:05 06:05 WBC 4.41 (4.0-11.0) K/uL RBC 5.42 (4.50-5.90) M/uL Hgb 15.4 (13.0-17.0) g/dL Hct 45.7 (38.0-50.0) % MCV 84.3 (80.0-98.0) fL MCH 28.4 (27.0-32.0) pg MCHC 33.7 (31.0-37.0) g/dL RDW Std Deviation 40.9 (28.0-62.0) fl RDW Coeff of Akin 13 (11.0-15.0) % Plt Count 112 L (150-400) K/uL MPV 10.10 (7.40-12.00) fL Neut % (Auto) 66.2 (48.0-80.0) % Lymph % (Auto) 24.3 (16.0-40.0) % [place] % (Auto) 7.7 (0.0-15.0) % Eos % (Auto) 1.6 (0.0-7.0) % Baso % (Auto) 0.2 (0.0-1.5) % Neut # (Auto) 2.9 (1.4-5.7) K/uL Lymph # (Auto) 1.1 (0.6-2.4) K/uL [place] # (Auto) 0.3 (0.0-0.8) K/uL Eos # (Auto) 0.1 (0.0-0.7) K/uL Baso # (Auto) 0.0 (0.0-0.1) K/uL Nucleated RBC % 0.0 /100WBC Nucleated RBCs # 0 K/uL Sodium 144 (136-148) mmol/L Potassium 4.8 (3.5-5.1) mmol/L Chloride 106 (98-107) mmol/L Carbon Dioxide 32.5 H (21.0-32.0) mmol/L BUN 7 (7.0-18.0) mg/dL Creatinine 1.2 (0.8-1.3) mg/dL Est Cr Clr Drug Dosing 88.02 mL/min Estimated GFR (MDRD) > 60.0 ml/min Glucose 94 (74-106) mg/dL Calcium 8.1 L (8.5-10.1) mg/dL Phosphorus 3.1 (2.6-4.7) mg/dL Magnesium 1.9 (1.8-2.4) mg/dL Total Bilirubin 0.5 (0.2-1.0) mg/dL AST 41 H (15-37) IU/L ALT 33 (14-63) IU/L Alkaline Phosphatase 33 L (46-116) U/L Total Protein 5.5 L (6.4-8.2) g/dL Albumin 2.2 L (3.4-5.0) g/dL Globulin 3.3 (2.6-4.0) g/dL Albumin/Globulin Ratio 0.7 L (0.9-1.6) Shane Results Last 24 Hours: Microbiology 10/26/19 18:41 Aerobic Blood Culture - Preliminary Blood - Venous - Lab Draw NO GROWTH AFTER 2 DAYS Anaerobic Blood Culture - Preliminary NO GROWTH AFTER 2 DAYS 10/26/19 18:30 Aerobic Blood Culture - Preliminary Blood - Venous NO GROWTH AFTER 2 DAYS Anaerobic Blood Culture - Preliminary NO GROWTH AFTER 2 DAYS 10/27/19 02:30 Streptococcus pneumoniae Antigen (M - Final Urine 10/27/19 02:30 Legionella Urinary Antigen - Final Urine Med Orders - Current: Current Medications Acetaminophen (Tylenol) 650 mg PO Q4H PRN PRN Reason: Pain (Mild 1-3)/fever Last Admin: 10/29/19 00:16 Dose: 650 mg Albuterol/Ipratropium (Combivent Respimat) 0 gm INH Q4H PRN PRN Reason: Dyspnea Last Admin: 10/28/19 17:36 Dose: 1 puff Azithromycin (Zithromax) 500 mg PO Q24H [facility] Last Admin: 10/28/19 20:37 Dose: 500 mg Benzonatate (Tessalon Perles) 200 mg PO TID PRN PRN Reason: Cough Last Admin: 10/29/19 03:34 Dose: 200 mg Guaifenesin/Codeine Phosphate (Robitussin Ac) 5 ml PO Q4H PRN PRN Reason: Cough Last Admin: 10/29/19 08:01 Dose: 5 ml Ceftriaxone Sodium/Dextrose 1 (gm/ Premix) 50 mls @ 100 mls/hr IV Q24H [facility] Last Admin: 10/28/19 20:38 Dose: 100 mls/hr Sodium Chloride (Normal Saline) 1,000 mls @ 125 mls/hr IV Q8H [facility] Last Admin: 10/29/19 03:40 Dose: 125 mls/hr Morphine Sulfate (Morphine) 1 mg IVPUSH Q4H PRN PRN Reason: Pain Last Admin: 10/29/19 03:36 Dose: 1 mg Discontinued Medications Acetaminophen (Tylenol Extra Strength) 1,000 mg PO ONETIME ONE Stop: 10/26/19 18:23 Last Admin: 10/26/19 18:51 Dose: 1,000 mg Albuterol/Ipratropium (Duoneb 3.0-0.5 Mg/3 Ml) 3 ml NEB Q4HRRT PRN PRN Reason: Shortness Of Breath/wheezing Last Admin: 10/26/19 23:12 Dose: 3 ml Azithromycin (Zithromax) 1,000 mg PO Q24H [facility] Calcium Carbonate/Glycine (Tums) 1,000 mg PO ONETIME ONE Stop: 10/27/19 07:39 Last Admin: 10/27/19 08:36 Dose: 1,000 mg Guaifenesin (Robitussin) 100 mg PO Q4H PRN PRN Reason: Cough Last Admin: 10/27/19 09:38 Dose: 100 mg Hydroxychloroquine Sulfate (Plaquenil) 400 mg PO BID [facility] Stop: 10/27/19 21:01 Last Admin: 10/27/19 14:44 Dose: Not Given Sodium Chloride (Normal Saline) 1,000 mls @ 999 mls/hr IV STAT ONE Stop: 10/26/19 19:21 Last Admin: 10/26/19 18:40 Dose: 999 mls/hr Sodium Chloride (Normal Saline) 1,000 mls @ 125 mls/hr IV STAT ONE Stop: 10/27/19 03:13 Last Admin: 10/26/19 23:12 Dose: 125 mls/hr Ceftriaxone Sodium/Dextrose 1 (gm/ Premix) 50 mls @ 100 mls/hr IV ONETIME ONE Stop: 10/26/19 20:31 Last Admin: 10/26/19 20:10 Dose: 100 mls/hr Azithromycin 500 mg/ Sodium (Chloride) 250 mls @ 250 mls/hr IV ONETIME [facility] Last Admin: 10/27/19 20:51 Dose: 250 mls/hr Lactated Ringer's (Ringers, Lactated) 1,000 mls @ 125 mls/hr IV ASDIRECTED [facility] Azithromycin 500 mg/ Sodium (Chloride) 250 mls @ 250 mls/hr IV Q24H [facility] Last Admin: 10/27/19 21:00 Dose: 250 mls/hr Magnesium Sulfate 2 gm/ Premix 50 mls @ 50 mls/hr IV ONETIME ONE Stop: 10/27/19 08:36 Last Admin: 10/27/19 08:36 Dose: 50 mls/hr Sodium Chloride (Normal Saline) 1,000 mls @ 999 mls/hr IV STAT ONE Stop: 10/27/19 10:14 Last Admin: 10/27/19 09:37 Dose: 999 mls/hr Sodium Chloride (Normal Saline) 500 mls @ 500 mls/hr IV STAT ONE Stop: 10/28/19 20:03 Last Admin: 10/28/19 19:12 Dose: 500 mls/hr Ketorolac Tromethamine (Toradol) 30 mg IVPUSH ONETIME ONE Stop: 10/26/19 19:45 Last Admin: 10/26/19 19:56 Dose: 30 mg Promethazine HCl/Codeine (Phenergan With Codeine) 10 ml PO NOW STA Stop: 10/26/19 18:26 Last Admin: 10/26/19 18:51 Dose: 10 ml Sodium Phosphate (Neutra-Phos) 250 mg PO QID [facility] Stop: 10/28/19 06:01 Last Admin: 10/28/19 05:39 Dose: 250 mg - Exam General: Alert, Oriented, Cooperative, Mild Distress Lungs: Other (quiet breath sounds b/l) Cardiovascular: Regular Rate, Regular Rhythm GI/Abdominal Exam: Normal Bowel Sounds, Soft, Non-Tender, No Distention Extremities: Normal Inspection, No Pedal Edema Sepsis Event Note - Evaluation Sepsis Screening Result: Severe Sepsis Risk - Focused Exam Vital Signs: Vital Signs Temp Temp Pulse Resp BP Pulse Ox 10/29/19 07:03 79 19 121/71 95 10/29/19 06:03 91 20 111/65 94 L 10/29/19 05:08 78 20 104/55 L 95 10/29/19 04:05 88 19 118/65 92 L 10/29/19 03:45 97.5 F 10/29/19 03:03 79 18 111/65 96 10/29/19 02:04 97.2 F 85 21 H 106/58 L 95 10/29/19 01:05 95 22 H 111/61 95 10/29/19 00:16 100.0 F 10/29/19 00:14 100.0 F 103 H 24 H 124/68 95 10/28/19 22:53 95 19 115/69 98 10/28/19 22:00 96 20 121/78 97 10/28/19 20:44 25 H 137/86 96 Date Exam was Performed: 10/29/19 Time Exam was Performed: 11:23 - Problem List Review Problem List Initiated/Reviewed/Updated: Yes - My Orders Last 24 Hours: My Active Orders 10/28/19 19:06 Blood Culture x2 Reflex Set [OM.PC] Stat 10/28/19 19:24 CULTURE BLOOD [BC] Stat 10/28/19 19:35 CULTURE BLOOD [BC] Stat 10/28/19 21:00 Azithromycin [Zithromax] 500 mg PO Q24H - Plan Plan:: Assessment and Plan: 1. Sepsis secondary to multifocal community acquired pneumonia: - Continue IV ceftriaxone and PO azithromycin, combivent INH MDI q4 prn, IV NS 125 cc/hr and supplemental oxygen. COVID19 test negative. - Since admission, patient has met sepsis criteria and lactate level was normal on admission. Patient's blood pressures have been stable, he is afebrile and has normal mentation. Will continue to monitor. Advance to soft diet today. Will downgrade to med/surg floor. 2. Acute hypoxic respiratory failure secondary to #1: - Patient still requiring 2 L NC. Will attempt to wean down supplemental oxygen as tolerated. Continue combivent INH MDI q4 prn. 3. DVT prophylaxis: SCD's.
[2019-10-29] MEDS: Albuterol/Ipratropium 4 GM Inhalation Spray INH PRN ×2 (10:51→20:22)
[2019-10-29] MEDS: cefTRIAXone 1 GM in Premix Bag 1 BAG IV SCH (19:58)
[2019-10-29] MEDS: Azithromycin 250 MG Tab PO SCH (20:05)
[2019-10-30] MEDS: Codeine/guaiFENesin 10-100 MG/5 ML Syrup 5 ML Cup PO PRN ×3 (03:30→18:23)
[2019-10-30] MEDS: Sodium Chloride 0.9% 1,000 ML IV SCH ×3 (04:43→20:47)
[2019-10-30 07:06] LABS: BLOOD UREA NITROGEN,BUN 7 mg/dL (7.0-18.0); CARBON DIOXIDE,CO2 29.6 mmol/L (21.0-32.0); CHLORIDE,CL 104 mmol/L (98-107); GLUCOSE RANDOM 94 mg/dL (74-106); POTASSIUM,K 3.9 mmol/L (3.5-5.1); SODIUM,NA 139 mmol/L (136-148)
--- NOTE | 2019-10-30 11:21 | PCM.PN ---
- General Info Date of Service: 10/30/19 - Review of Systems Systems Review Comment:: last night reports increasing shortness of breath and fevers, this morning feeling a bit better. - Patient Data Vitals - Most Recent: Last Vital Signs Temp 37 C 10/30/19 11:09 Pulse 98 10/30/19 11:09 Resp 18 10/30/19 11:09 BP 147/75 H 10/30/19 11:09 Pulse Ox 97 10/30/19 11:09 Weight - Most Recent: 90.7 kg I&O - Last 24 Hours: Intake & Output 10/29/19 10/30/19 10/30/19 22:59 06:59 14:59 Intake Total 1925 1100 Output Total 1000 1600 Balance 925 -500 Lab Results Last 24 Hours: Laboratory Results - last 24 hr 10/30/19 10/30/19 Range/Units 06:00 06:00 WBC 4.86 (4.0-11.0) K/uL RBC 5.13 (4.50-5.90) M/uL Hgb 14.4 (13.0-17.0) g/dL Hct 42.7 (38.0-50.0) % MCV 83.2 (80.0-98.0) fL MCH 28.1 (27.0-32.0) pg MCHC 33.7 (31.0-37.0) g/dL RDW Std Deviation 39.3 (28.0-62.0) fl RDW Coeff of Akin 13 (11.0-15.0) % Plt Count 153 (150-400) K/uL MPV 10.50 (7.40-12.00) fL Neut % (Auto) 70.0 (48.0-80.0) % Lymph % (Auto) 19.5 (16.0-40.0) % [place] % (Auto) 9.5 (0.0-15.0) % Eos % (Auto) 0.8 (0.0-7.0) % Baso % (Auto) 0.2 (0.0-1.5) % Neut # (Auto) 3.4 (1.4-5.7) K/uL Lymph # (Auto) 1.0 (0.6-2.4) K/uL [place] # (Auto) 0.5 (0.0-0.8) K/uL Eos # (Auto) 0.0 (0.0-0.7) K/uL Baso # (Auto) 0.0 (0.0-0.1) K/uL Nucleated RBC % 0.0 /100WBC Nucleated RBCs # 0 K/uL Sodium 139 (136-148) mmol/L Potassium 3.9 (3.5-5.1) mmol/L Chloride 104 (98-107) mmol/L Carbon Dioxide 29.6 (21.0-32.0) mmol/L BUN 7 (7.0-18.0) mg/dL Creatinine 1.1 (0.8-1.3) mg/dL Est Cr Clr Drug Dosing 96.02 mL/min Estimated GFR (MDRD) > 60.0 ml/min Glucose 94 (74-106) mg/dL Calcium 7.7 L (8.5-10.1) mg/dL Phosphorus 2.3 L (2.6-4.7) mg/dL Magnesium 1.7 L (1.8-2.4) mg/dL Total Bilirubin 0.6 (0.2-1.0) mg/dL AST 48 H (15-37) IU/L ALT 47 (14-63) IU/L Alkaline Phosphatase 31 L (46-116) U/L Total Protein 5.5 L (6.4-8.2) g/dL Albumin 2.1 L (3.4-5.0) g/dL Globulin 3.4 (2.6-4.0) g/dL Albumin/Globulin Ratio 0.6 L (0.9-1.6) Shane Results Last 24 Hours: Microbiology 10/28/19 19:35 Aerobic Blood Culture - Preliminary Blood - Venous - Lab Draw NO GROWTH AFTER 1 DAY Anaerobic Blood Culture - Preliminary NO GROWTH AFTER 1 DAY 10/28/19 19:24 Aerobic Blood Culture - Preliminary Blood - Venous NO GROWTH AFTER 1 DAY Anaerobic Blood Culture - Preliminary NO GROWTH AFTER 1 DAY 10/26/19 18:41 Aerobic Blood Culture - Preliminary Blood - Venous - Lab Draw NO GROWTH AFTER 3 DAYS Anaerobic Blood Culture - Preliminary NO GROWTH AFTER 3 DAYS 10/26/19 18:30 Aerobic Blood Culture - Preliminary Blood - Venous NO GROWTH AFTER 3 DAYS Anaerobic Blood Culture - Preliminary NO GROWTH AFTER 3 DAYS Med Orders - Current: Current Medications Acetaminophen (Tylenol) 650 mg PO Q4H PRN PRN Reason: Pain (Mild 1-3)/fever Last Admin: 10/29/19 20:26 Dose: 650 mg Albuterol/Ipratropium (Combivent Respimat) 0 gm INH Q4H PRN PRN Reason: Dyspnea Last Admin: 10/29/19 20:22 Dose: 1 puff Azithromycin (Zithromax) 500 mg PO Q24H [facility] Last Admin: 10/29/19 20:05 Dose: 500 mg Benzonatate (Tessalon Perles) 200 mg PO TID PRN PRN Reason: Cough Last Admin: 10/29/19 03:34 Dose: 200 mg Guaifenesin/Codeine Phosphate (Robitussin Ac) 5 ml PO Q4H PRN PRN Reason: Cough Last Admin: 10/30/19 03:30 Dose: 5 ml Ceftriaxone Sodium/Dextrose 1 (gm/ Premix) 50 mls @ 100 mls/hr IV Q24H [facility] Last Admin: 10/29/19 19:58 Dose: 100 mls/hr Sodium Chloride (Normal Saline) 1,000 mls @ 125 mls/hr IV Q8H [facility] Last Admin: 10/30/19 04:43 Dose: 125 mls/hr Morphine Sulfate (Morphine) 1 mg IVPUSH Q4H PRN PRN Reason: Pain Last Admin: 10/29/19 20:19 Dose: 1 mg Discontinued Medications Acetaminophen (Tylenol Extra Strength) 1,000 mg PO ONETIME ONE Stop: 10/26/19 18:23 Last Admin: 10/26/19 18:51 Dose: 1,000 mg Albuterol/Ipratropium (Duoneb 3.0-0.5 Mg/3 Ml) 3 ml NEB Q4HRRT PRN PRN Reason: Shortness Of Breath/wheezing Last Admin: 10/26/19 23:12 Dose: 3 ml Azithromycin (Zithromax) 1,000 mg PO Q24H [facility] Calcium Carbonate/Glycine (Tums) 1,000 mg PO ONETIME ONE Stop: 10/27/19 07:39 Last Admin: 10/27/19 08:36 Dose: 1,000 mg Guaifenesin (Robitussin) 100 mg PO Q4H PRN PRN Reason: Cough Last Admin: 10/27/19 09:38 Dose: 100 mg Hydroxychloroquine Sulfate (Plaquenil) 400 mg PO BID [facility] Stop: 10/27/19 21:01 Last Admin: 10/27/19 14:44 Dose: Not Given Sodium Chloride (Normal Saline) 1,000 mls @ 999 mls/hr IV STAT ONE Stop: 10/26/19 19:21 Last Admin: 10/26/19 18:40 Dose: 999 mls/hr Sodium Chloride (Normal Saline) 1,000 mls @ 125 mls/hr IV STAT ONE Stop: 10/27/19 03:13 Last Admin: 10/26/19 23:12 Dose: 125 mls/hr Ceftriaxone Sodium/Dextrose 1 (gm/ Premix) 50 mls @ 100 mls/hr IV ONETIME ONE Stop: 10/26/19 20:31 Last Admin: 10/26/19 20:10 Dose: 100 mls/hr Azithromycin 500 mg/ Sodium (Chloride) 250 mls @ 250 mls/hr IV ONETIME [facility] Last Admin: 10/27/19 20:51 Dose: 250 mls/hr Lactated Ringer's (Ringers, Lactated) 1,000 mls @ 125 mls/hr IV ASDIRECTED [facility] Azithromycin 500 mg/ Sodium (Chloride) 250 mls @ 250 mls/hr IV Q24H [facility] Last Admin: 10/27/19 21:00 Dose: 250 mls/hr Magnesium Sulfate 2 gm/ Premix 50 mls @ 50 mls/hr IV ONETIME ONE Stop: 10/27/19 08:36 Last Admin: 10/27/19 08:36 Dose: 50 mls/hr Sodium Chloride (Normal Saline) 1,000 mls @ 999 mls/hr IV STAT ONE Stop: 10/27/19 10:14 Last Admin: 10/27/19 09:37 Dose: 999 mls/hr Sodium Chloride (Normal Saline) 500 mls @ 500 mls/hr IV STAT ONE Stop: 10/28/19 20:03 Last Admin: 10/28/19 19:12 Dose: 500 mls/hr Ketorolac Tromethamine (Toradol) 30 mg IVPUSH ONETIME ONE Stop: 10/26/19 19:45 Last Admin: 10/26/19 19:56 Dose: 30 mg Promethazine HCl/Codeine (Phenergan With Codeine) 10 ml PO NOW STA Stop: 10/26/19 18:26 Last Admin: 10/26/19 18:51 Dose: 10 ml Sodium Phosphate (Neutra-Phos) 250 mg PO QID [facility] Stop: 10/28/19 06:01 Last Admin: 10/28/19 05:39 Dose: 250 mg - Exam General: Alert, Oriented HEENT: Mucous Membr. Moist/Tranquillity Neck: Supple Lungs: Normal Respiratory Effort, Rhonchi GI/Abdominal Exam: Soft, Non-Tender, No Distention Extremities: Non-Tender, No Pedal Edema Skin: Warm, Dry, Intact Neurological: No New Focal Deficit Sepsis Event Note - Evaluation Sepsis Screening Result: Sepsis Risk - Focused Exam Vital Signs: Vital Signs Temp Pulse Resp BP Pulse Ox 10/30/19 11:09 37 C 98 18 147/75 H 97 10/30/19 07:30 37.2 C 100 24 H 121/71 95 10/30/19 03:27 37.6 C 109 H 19 121/85 93 L 10/30/19 00:00 37.0 C 111 H 18 124/72 95 Date Exam was Performed: 10/30/19 Time Exam was Performed: 11:19 - Problem List Review Problem List Initiated/Reviewed/Updated: Yes - My Orders Last 24 Hours: My Active Orders 10/31/19 05:11 BASIC METABOLIC PANEL,BMP [CHEM] AM CBC WITH AUTO DIFF [HEME] AM - Plan Plan:: 44 yo male admitted with sepsis due to pneumonia. We will continue Rocephin and azithromycin. Will ween from supplemental oxygen as tolerated.
[2019-10-30] MEDS: Acetaminophen 325 MG Tab PO PRN ×2 (17:16→22:02)
[2019-10-30] MEDS: Benzonatate 100 MG Cap PO PRN (20:45)
[2019-10-30] MEDS: Azithromycin 250 MG Tab PO SCH (20:45)
[2019-10-30] MEDS: cefTRIAXone 1 GM in Premix Bag 1 BAG IV SCH (20:46)
[2019-10-30] MEDS: Morphine 2 MG/ML Syringe IVPUSH PRN (20:48)
[2019-10-31] MEDS: Sodium Chloride 0.9% 1,000 ML IV SCH (05:56)
[2019-10-31 06:38] LABS: BLOOD UREA NITROGEN,BUN 9 mg/dL (7.0-18.0); CARBON DIOXIDE,CO2 27.4 mmol/L (21.0-32.0); CHLORIDE,CL 106 mmol/L (98-107); GLUCOSE RANDOM 96 mg/dL (74-106); POTASSIUM,K 4.1 mmol/L (3.5-5.1); SODIUM,NA 140 mmol/L (136-148)
[2019-10-31] MEDS: Acetaminophen 325 MG Tab PO PRN (08:38)
--- NOTE | 2019-10-31 11:55 | PCM.PN ---
- General Info Date of Service: 10/31/19 Subjective Update: Patient has been on room air overnight and reports feeling comfortable at rest but gets short of breath while walking. Cough has improved since yesterday. Tolerating oral diet and having bowel movements. - Patient Data Vitals - Most Recent: Last Vital Signs Temp 97.5 F 10/31/19 08:00 Pulse 99 10/31/19 08:00 Resp 16 10/31/19 08:00 BP 127/73 10/31/19 08:00 Pulse Ox 93 L 10/31/19 08:00 Weight - Most Recent: 199 lb 15.348 oz I&O - Last 24 Hours: Intake & Output 10/30/19 10/31/19 10/31/19 22:59 06:59 14:59 Intake Total 850 2278 Output Total 600 950 Balance 250 1328 Lab Results Last 24 Hours: Laboratory Results - last 24 hr 10/31/19 10/31/19 Range/Units 05:55 05:55 WBC 5.00 (4.0-11.0) K/uL RBC 5.17 (4.50-5.90) M/uL Hgb 14.4 (13.0-17.0) g/dL Hct 43.1 (38.0-50.0) % MCV 83.4 (80.0-98.0) fL MCH 27.9 (27.0-32.0) pg MCHC 33.4 (31.0-37.0) g/dL RDW Std Deviation 38.5 (28.0-62.0) fl RDW Coeff of Akin 13 (11.0-15.0) % Plt Count 194 (150-400) K/uL MPV 10.10 (7.40-12.00) fL Neut % (Auto) 70.0 (48.0-80.0) % Lymph % (Auto) 17.2 (16.0-40.0) % [place] % (Auto) 11.0 (0.0-15.0) % Eos % (Auto) 1.6 (0.0-7.0) % Baso % (Auto) 0.2 (0.0-1.5) % Neut # (Auto) 3.5 (1.4-5.7) K/uL Lymph # (Auto) 0.9 (0.6-2.4) K/uL [place] # (Auto) 0.6 (0.0-0.8) K/uL Eos # (Auto) 0.1 (0.0-0.7) K/uL Baso # (Auto) 0.0 (0.0-0.1) K/uL Nucleated RBC % 0.0 /100WBC Nucleated RBCs # 0 K/uL Sodium 140 (136-148) mmol/L Potassium 4.1 (3.5-5.1) mmol/L Chloride 106 (98-107) mmol/L Carbon Dioxide 27.4 (21.0-32.0) mmol/L BUN 9 (7.0-18.0) mg/dL Creatinine 1.1 (0.8-1.3) mg/dL Est Cr Clr Drug Dosing 96.02 mL/min Estimated GFR (MDRD) > 60.0 ml/min Glucose 96 (74-106) mg/dL Calcium 8.2 L (8.5-10.1) mg/dL Shane Results Last 24 Hours: Microbiology 10/28/19 19:35 Aerobic Blood Culture - Preliminary Blood - Venous - Lab Draw NO GROWTH AFTER 2 DAYS Anaerobic Blood Culture - Preliminary NO GROWTH AFTER 2 DAYS 10/28/19 19:24 Aerobic Blood Culture - Preliminary Blood - Venous NO GROWTH AFTER 2 DAYS Anaerobic Blood Culture - Preliminary NO GROWTH AFTER 2 DAYS 10/26/19 18:41 Aerobic Blood Culture - Preliminary Blood - Venous - Lab Draw NO GROWTH AFTER 4 DAYS Anaerobic Blood Culture - Preliminary NO GROWTH AFTER 4 DAYS 10/26/19 18:30 Aerobic Blood Culture - Preliminary Blood - Venous NO GROWTH AFTER 4 DAYS Anaerobic Blood Culture - Preliminary NO GROWTH AFTER 4 DAYS Med Orders - Current: Current Medications Acetaminophen (Tylenol) 650 mg PO Q4H PRN PRN Reason: Pain (Mild 1-3)/fever Last Admin: 10/31/19 08:38 Dose: 650 mg Albuterol/Ipratropium (Combivent Respimat) 0 gm INH Q4H PRN PRN Reason: Dyspnea Last Admin: 10/29/19 20:22 Dose: 1 puff Azithromycin (Zithromax) 500 mg PO Q24H [facility] Last Admin: 10/30/19 20:45 Dose: 500 mg Benzonatate (Tessalon Perles) 200 mg PO TID PRN PRN Reason: Cough Last Admin: 10/30/19 20:45 Dose: 200 mg Guaifenesin/Codeine Phosphate (Robitussin Ac) 5 ml PO Q4H PRN PRN Reason: Cough Last Admin: 10/30/19 18:23 Dose: 5 ml Ceftriaxone Sodium/Dextrose 1 (gm/ Premix) 50 mls @ 100 mls/hr IV Q24H [facility] Last Admin: 10/30/19 20:46 Dose: 100 mls/hr Morphine Sulfate (Morphine) 1 mg IVPUSH Q4H PRN PRN Reason: Pain Last Admin: 10/30/19 20:48 Dose: 1 mg Discontinued Medications Acetaminophen (Tylenol Extra Strength) 1,000 mg PO ONETIME ONE Stop: 10/26/19 18:23 Last Admin: 10/26/19 18:51 Dose: 1,000 mg Albuterol/Ipratropium (Duoneb 3.0-0.5 Mg/3 Ml) 3 ml NEB Q4HRRT PRN PRN Reason: Shortness Of Breath/wheezing Last Admin: 10/26/19 23:12 Dose: 3 ml Azithromycin (Zithromax) 1,000 mg PO Q24H [facility] Calcium Carbonate/Glycine (Tums) 1,000 mg PO ONETIME ONE Stop: 10/27/19 07:39 Last Admin: 10/27/19 08:36 Dose: 1,000 mg Guaifenesin (Robitussin) 100 mg PO Q4H PRN PRN Reason: Cough Last Admin: 10/27/19 09:38 Dose: 100 mg Hydroxychloroquine Sulfate (Plaquenil) 400 mg PO BID [facility] Stop: 10/27/19 21:01 Last Admin: 10/27/19 14:44 Dose: Not Given Sodium Chloride (Normal Saline) 1,000 mls @ 999 mls/hr IV STAT ONE Stop: 10/26/19 19:21 Last Admin: 10/26/19 18:40 Dose: 999 mls/hr Sodium Chloride (Normal Saline) 1,000 mls @ 125 mls/hr IV STAT ONE Stop: 10/27/19 03:13 Last Admin: 10/26/19 23:12 Dose: 125 mls/hr Ceftriaxone Sodium/Dextrose 1 (gm/ Premix) 50 mls @ 100 mls/hr IV ONETIME ONE Stop: 10/26/19 20:31 Last Admin: 10/26/19 20:10 Dose: 100 mls/hr Azithromycin 500 mg/ Sodium (Chloride) 250 mls @ 250 mls/hr IV ONETIME [facility] Last Admin: 10/27/19 20:51 Dose: 250 mls/hr Lactated Ringer's (Ringers, Lactated) 1,000 mls @ 125 mls/hr IV ASDIRECTED [facility] Azithromycin 500 mg/ Sodium (Chloride) 250 mls @ 250 mls/hr IV Q24H [facility] Last Admin: 10/27/19 21:00 Dose: 250 mls/hr Magnesium Sulfate 2 gm/ Premix 50 mls @ 50 mls/hr IV ONETIME ONE Stop: 10/27/19 08:36 Last Admin: 10/27/19 08:36 Dose: 50 mls/hr Sodium Chloride (Normal Saline) 1,000 mls @ 999 mls/hr IV STAT ONE Stop: 10/27/19 10:14 Last Admin: 10/27/19 09:37 Dose: 999 mls/hr Sodium Chloride (Normal Saline) 1,000 mls @ 125 mls/hr IV Q8H [facility] Last Admin: 10/31/19 05:56 Dose: 125 mls/hr Sodium Chloride (Normal Saline) 500 mls @ 500 mls/hr IV STAT ONE Stop: 10/28/19 20:03 Last Admin: 10/28/19 19:12 Dose: 500 mls/hr Ketorolac Tromethamine (Toradol) 30 mg IVPUSH ONETIME ONE Stop: 10/26/19 19:45 Last Admin: 10/26/19 19:56 Dose: 30 mg Promethazine HCl/Codeine (Phenergan With Codeine) 10 ml PO NOW STA Stop: 10/26/19 18:26 Last Admin: 10/26/19 18:51 Dose: 10 ml Sodium Phosphate (Neutra-Phos) 250 mg PO QID [facility] Stop: 10/28/19 06:01 Last Admin: 10/28/19 05:39 Dose: 250 mg - Exam General: Alert, Oriented, Cooperative, No Acute Distress Lungs: Normal Respiratory Effort, Other (quiet breath sounds b/l) Cardiovascular: Regular Rate, Regular Rhythm GI/Abdominal Exam: Normal Bowel Sounds, Soft, Non-Tender, No Distention Extremities: Normal Inspection, No Pedal Edema Sepsis Event Note - Evaluation Sepsis Screening Result: No Definite Risk - Focused Exam Vital Signs: Vital Signs Temp Pulse Resp BP Pulse Ox 10/31/19 08:00 97.5 F 99 16 127/73 93 L 10/31/19 04:55 99.6 F 101 H 20 133/68 93 L Date Exam was Performed: 10/31/19 Time Exam was Performed: 11:52 - Problem List Review Problem List Initiated/Reviewed/Updated: Yes - My Orders Last 24 Hours: My Active Orders 10/31/19 Lunch Regular Diet [DIET] 11/01/19 05:11 CBC WITH AUTO DIFF [HEME] AM COMPREHENSIVE METABOLIC PN,CMP [CHEM] AM - Plan Plan:: Assessment and Plan: 1. Sepsis secondary to multifocal community acquired pneumonia: - Patient on room air. Will encourage ambulation and incentive spirometer use. Will continue IV ceftriaxone and PO azithromycin and combivent INH MDI q4 prn. Advance to regular diet. Discontinue IV fluids. COVID19 test negative. 2. DVT prophylaxis: SCD's.
[2019-10-31] MEDS: cefTRIAXone 1 GM in Premix Bag 1 BAG IV SCH (21:43)
[2019-10-31] MEDS: Azithromycin 250 MG Tab PO SCH (21:43)
[2019-10-31] MEDS: Codeine/guaiFENesin 10-100 MG/5 ML Syrup 5 ML Cup PO PRN (22:32)
[2019-10-31] MEDS: Benzonatate 100 MG Cap PO PRN (22:32)
[2019-11-01] MEDS: Benzonatate 100 MG Cap PO PRN (06:24)
[2019-11-01] MEDS: Codeine/guaiFENesin 10-100 MG/5 ML Syrup 5 ML Cup PO PRN (06:24)
[2019-11-01 06:34] LABS: BLOOD UREA NITROGEN,BUN 8 mg/dL (7.0-18.0); CARBON DIOXIDE,CO2 26.2 mmol/L (21.0-32.0); CHLORIDE,CL 107 mmol/L (98-107); GLUCOSE RANDOM 90 mg/dL (74-106); POTASSIUM,K 3.7 mmol/L (3.5-5.1); SODIUM,NA 143 mmol/L (136-148)
--- NOTE | 2019-11-01 11:34 | PCM.DCSUM1 ---
Discharge Summary - Hospital Course Free Text/Narrative:: 44-year-old male admitted for sepsis secondary to multifocal community acquired pneumonia. He has a PMH of celiac disease and low testosterone. Patient came in complaining of SOB, fevers, cough, muscle aches and recently returned from a trip to [place]. CXR showed bibasilar pneumonia. CT chest showed b/l multifocal pneumonia. Influenza test negative. On admission patient was hypoxic and requiring 2 L NC and was admitted to general medical floor. On second day of hospitalization, patient noted no improvement in his breathing and he was then transferred to the ICU as it was suspected that his respiratory status could decompensate very quickly. He was started on IV ceftriaxone, azithromycin and Combivent MDI prn. As his vital signs stabilized and breathing had improved he was eventually downgraded to general medical floor and weaned off of oxygen. COVID19 test was negative. Blood cultures negative x 2 sets. Patient was discharged in stable condition on 5 more days of azithromycin and cefdinir. He was advised to self-quarantine for 5 more days on discharge. Advised to follow- up with his PCP Dr. Krueger in 1-2 weeks. - Discharge Data Discharge Date: 11/01/19 Discharge Disposition: Home, Self-Care 01 Condition: Stable - Referral to Home Health Primary Care Physician: PCP None - Patient Instructions Diet: Usual Diet as Tolerated Activity: As Tolerated Notify Provider of: Fever, Increased Pain, Swelling and Redness, Drainage, Nausea and/or Vomiting - Discharge Plan *PRESCRIPTION DRUG MONITORING PROGRAM REVIEWED*: Not Applicable *COPY OF PRESCRIPTION DRUG MONITORING REPORT IN PATIENT TITO: Not Applicable Prescriptions/Med Rec: Azithromycin [Zithromax] 250 mg PO DAILY 5 Days #5 tablet Benzonatate [Tessalon Perle] 100 mg PO TID PRN 4 Days #12 capsule PRN Reason: Cough Cefdinir 300 mg PO BID 5 Days #10 capsule Home Medications: Home Meds Testosterone [Androderm] 1 each INJECT WEEKLY 06/29/19 [History] Azithromycin [Zithromax] 250 mg PO DAILY 5 Days #5 tablet 11/01/19 [Rx] Benzonatate [Tessalon Perle] 100 mg PO TID PRN 4 Days #12 capsule 11/01/19 [Rx] Cefdinir 300 mg PO BID 5 Days #10 capsule 11/01/19 [Rx] Oxygen Therapy Mode: Room Air Patient Handouts: Cefdinir capsules, Azithromycin tablets, Pneumonitis, Benzonatate capsules Referrals: Roland Aranda MD [Resident] - 11/07/19 2:00 pm (Your appointment has been rescheduled to follow up on this hospitalization) - Discharge Summary/Plan Comment DC Time >30 min.: No - Patient Data Vitals - Most Recent: Last Vital Signs Temp 98.2 F 11/01/19 08:00 Pulse 83 11/01/19 08:00 Resp 19 11/01/19 08:00 BP 129/83 11/01/19 08:00 Pulse Ox 98 11/01/19 08:00 Weight - Most Recent: 199 lb 15.348 oz I&O - Last 24 hours: Intake & Output 10/31/19 11/01/19 11/01/19 22:59 06:59 14:59 Intake Total 600 1200 Balance 600 1200 Lab Results - Last 24 hrs: Laboratory Results - last 24 hr 11/01/19 11/01/19 Range/Units 05:50 05:50 WBC 3.69 L (4.0-11.0) K/uL RBC 5.53 (4.50-5.90) M/uL Hgb 15.6 (13.0-17.0) g/dL Hct 45.4 (38.0-50.0) % MCV 82.1 (80.0-98.0) fL MCH 28.2 (27.0-32.0) pg MCHC 34.4 (31.0-37.0) g/dL RDW Std Deviation 38.7 (28.0-62.0) fl RDW Coeff of Akin 13 (11.0-15.0) % Plt Count 225 (150-400) K/uL MPV 9.60 (7.40-12.00) fL Neut % (Auto) 56.0 (48.0-80.0) % Lymph % (Auto) 28.2 (16.0-40.0) % Winn % (Auto) 11.4 (0.0-15.0) % Eos % (Auto) 4.1 (0.0-7.0) % Baso % (Auto) 0.3 (0.0-1.5) % Neut # (Auto) 2.1 (1.4-5.7) K/uL Lymph # (Auto) 1.0 (0.6-2.4) K/uL Winn # (Auto) 0.4 (0.0-0.8) K/uL Eos # (Auto) 0.2 (0.0-0.7) K/uL Baso # (Auto) 0.0 (0.0-0.1) K/uL Nucleated RBC % 0.0 /100WBC Nucleated RBCs # 0 K/uL Sodium 143 (136-148) mmol/L Potassium 3.7 (3.5-5.1) mmol/L Chloride 107 (98-107) mmol/L Carbon Dioxide 26.2 (21.0-32.0) mmol/L BUN 8 (7.0-18.0) mg/dL Creatinine 1.0 (0.8-1.3) mg/dL Est Cr Clr Drug Dosing 105.62 mL/min Estimated GFR (MDRD) > 60.0 ml/min Glucose 90 (74-106) mg/dL Calcium 8.3 L (8.5-10.1) mg/dL Total Bilirubin 0.6 (0.2-1.0) mg/dL AST 79 H (15-37) IU/L ALT 119 H (14-63) IU/L Alkaline Phosphatase 36 L (46-116) U/L Total Protein 6.4 (6.4-8.2) g/dL Albumin 2.2 L (3.4-5.0) g/dL Globulin 4.2 H (2.6-4.0) g/dL Albumin/Globulin Ratio 0.5 L (0.9-1.6) STEPHANIA Results - Last 24 hrs: Microbiology 10/28/19 19:35 Aerobic Blood Culture - Preliminary Blood - Venous - Lab Draw NO GROWTH AFTER 3 DAYS Anaerobic Blood Culture - Preliminary NO GROWTH AFTER 3 DAYS 10/28/19 19:24 Aerobic Blood Culture - Preliminary Blood - Venous NO GROWTH AFTER 3 DAYS Anaerobic Blood Culture - Preliminary NO GROWTH AFTER 3 DAYS 10/26/19 18:41 Aerobic Blood Culture - Final Blood - Venous - Lab Draw NO GROWTH AFTER 5 DAYS Anaerobic Blood Culture - Final NO GROWTH AFTER 5 DAYS 10/26/19 18:30 Aerobic Blood Culture - Final Blood - Venous NO GROWTH AFTER 5 DAYS Anaerobic Blood Culture - Final NO GROWTH AFTER 5 DAYS Med Orders - Current: Current Medications Acetaminophen (Tylenol) 650 mg PO Q4H PRN PRN Reason: Pain (Mild 1-3)/fever Last Admin: 10/31/19 08:38 Dose: 650 mg Albuterol/Ipratropium (Combivent Respimat) 0 gm INH Q4H PRN PRN Reason: Dyspnea Last Admin: 10/29/19 20:22 Dose: 1 puff Azithromycin (Zithromax) 500 mg PO Q24H [facility] Last Admin: 10/31/19 21:43 Dose: 500 mg Benzonatate (Tessalon Perles) 200 mg PO TID PRN PRN Reason: Cough Last Admin: 11/01/19 06:24 Dose: 200 mg Guaifenesin/Codeine Phosphate (Robitussin Ac) 5 ml PO Q4H PRN PRN Reason: Cough Last Admin: 11/01/19 06:24 Dose: 5 ml Ceftriaxone Sodium/Dextrose 1 (gm/ Premix) 50 mls @ 100 mls/hr IV Q24H [facility] Last Admin: 10/31/19 21:43 Dose: 100 mls/hr Morphine Sulfate (Morphine) 1 mg IVPUSH Q4H PRN PRN Reason: Pain Last Admin: 10/30/19 20:48 Dose: 1 mg Discontinued Medications Acetaminophen (Tylenol Extra Strength) 1,000 mg PO ONETIME ONE Stop: 10/26/19 18:23 Last Admin: 10/26/19 18:51 Dose: 1,000 mg Albuterol/Ipratropium (Duoneb 3.0-0.5 Mg/3 Ml) 3 ml NEB Q4HRRT PRN PRN Reason: Shortness Of Breath/wheezing Last Admin: 10/26/19 23:12 Dose: 3 ml Azithromycin (Zithromax) 1,000 mg PO Q24H [facility] Calcium Carbonate/Glycine (Tums) 1,000 mg PO ONETIME ONE Stop: 10/27/19 07:39 Last Admin: 10/27/19 08:36 Dose: 1,000 mg Guaifenesin (Robitussin) 100 mg PO Q4H PRN PRN Reason: Cough Last Admin: 10/27/19 09:38 Dose: 100 mg Hydroxychloroquine Sulfate (Plaquenil) 400 mg PO BID [facility] Stop: 03/26/20 21:01 Last Admin: 10/27/19 14:44 Dose: Not Given Sodium Chloride (Normal Saline) 1,000 mls @ 999 mls/hr IV STAT ONE Stop: 10/26/19 19:21 Last Admin: 10/26/19 18:40 Dose: 999 mls/hr Sodium Chloride (Normal Saline) 1,000 mls @ 125 mls/hr IV STAT ONE Stop: 10/27/19 03:13 Last Admin: 10/26/19 23:12 Dose: 125 mls/hr Ceftriaxone Sodium/Dextrose 1 (gm/ Premix) 50 mls @ 100 mls/hr IV ONETIME ONE Stop: 10/26/19 20:31 Last Admin: 10/26/19 20:10 Dose: 100 mls/hr Azithromycin 500 mg/ Sodium (Chloride) 250 mls @ 250 mls/hr IV ONETIME [facility] Last Admin: 10/27/19 20:51 Dose: 250 mls/hr Lactated Ringer's (Ringers, Lactated) 1,000 mls @ 125 mls/hr IV ASDIRECTED [facility] Azithromycin 500 mg/ Sodium (Chloride) 250 mls @ 250 mls/hr IV Q24H [facility] Last Admin: 10/27/19 21:00 Dose: 250 mls/hr Magnesium Sulfate 2 gm/ Premix 50 mls @ 50 mls/hr IV ONETIME ONE Stop: 10/27/19 08:36 Last Admin: 10/27/19 08:36 Dose: 50 mls/hr Sodium Chloride (Normal Saline) 1,000 mls @ 999 mls/hr IV STAT ONE Stop: 10/27/19 10:14 Last Admin: 10/27/19 09:37 Dose: 999 mls/hr Sodium Chloride (Normal Saline) 1,000 mls @ 125 mls/hr IV Q8H [facility] Last Admin: 10/31/19 05:56 Dose: 125 mls/hr Sodium Chloride (Normal Saline) 500 mls @ 500 mls/hr IV STAT ONE Stop: 10/28/19 20:03 Last Admin: 10/28/19 19:12 Dose: 500 mls/hr Ketorolac Tromethamine (Toradol) 30 mg IVPUSH ONETIME ONE Stop: 10/26/19 19:45 Last Admin: 10/26/19 19:56 Dose: 30 mg Promethazine HCl/Codeine (Phenergan With Codeine) 10 ml PO NOW STA Stop: 10/26/19 18:26 Last Admin: 10/26/19 18:51 Dose: 10 ml Sodium Phosphate (Neutra-Phos) 250 mg PO QID [facility] Stop: 10/28/19 06:01 Last Admin: 10/28/19 05:39 Dose: 250 mg
== END 2019-11-01 12:15 | disposition home or self-care (01) | DRG 720 ==
LOC: MW.ED 17:57 → MW.MS 20:01 → MW.ICU 10-27 15:21 → MW.MS 10-29 16:17
PROVIDERS: ADMIT Student in an Organized Health Care Education/Training Program; ATTEND Student in an Organized Health Care Education/Training Program
PROC: 8E0ZXY6 Isolation (ICD-10-PCS; principal; 2019-10-26)
DX: A41.9 Sepsis, unspecified organism (principal); J18.9 Pneumonia, unspecified organism; K90.0 Celiac disease; J96.01 Acute respiratory failure with hypoxia; Z79.899 Other long term (current) drug therapy; Z90.49 Acquired absence of other specified parts of digestive tract
CPT/HCPCS: 36415; 71046; 71046-26; 71250; 71250-26; 80048; 80053; 81001; 82728; 83605; 83615; 83735; 84100; 84484; 85025; 85379; 85652; 86140; 87040; 87899; 93005; 94640; 94664; 96361; 96374; 99284; 99285-25; A9270-GY; J0456; J0696; J1885; J2270; J3475; J7030; J7050; J7620-GY

== ENCOUNTER 2023-01-05 21:11 | Emergency (ER) | payer OTHER ==
[2023-01-05] MEDS ORDERED: Lidocaine 1% 5 ML VIAL ONE (21:28)
[2023-01-05] MEDS ORDERED: Albuterol/Ipratropium 3.0-0.5 MG/3 ML Neb Soln NEB ONE (21:29)
[2023-01-05] MEDS ORDERED: chlorproMAZINE 50 MG/2 ML Amp IM STA (22:00)
== END 2023-01-05 23:11 | disposition home or self-care (01) ==
LOC: MW.ED 21:11
DX: R06.6 Hiccough (principal); R06.2 Wheezing
CPT/HCPCS: 71045; 96372; 99285; J3230; 99283; J3490; J7620-GY

== ENCOUNTER 2023-01-07 22:31 | Emergency (ER) | payer OTHER ==
[2023-01-07] MEDS ORDERED: chlorproMAZINE 50 MG/2 ML Amp IM ONE ×2 (22:33→22:37)
[2023-01-07] MEDS ORDERED: Baclofen 10 MG Tab PO ONE (22:37)
[2023-01-07 22:58] LABS: BASOPHILS PERCENT AUTO 0.2 % (0.0-1.5); EOSINOPHILS ABSOLUTE AUTO 0.2 K/uL (0.0-0.7); HEMATOCRIT 48.3 % (38.0-50.0); HEMOGLOBIN 17.5 g/dL (13.0-17.0); LYMPHOCYTES ABSOLUTE AUTO 2.4 K/uL (0.6-2.4); LYMPHOCYTES PERCENT AUTO 22.8 % (16.0-40.0); MEAN CORPUSCULAR HEMOGLOBIN 29.7 pg (27.0-32.0); MEAN CORPUSCULAR HGB CONC 36.2 g/dL (31.0-37.0); MEAN CORPUSCULAR VOLUME 81.9 fL (80.0-98.0); MONOCYTES ABSOLUTE AUTO 0.7 K/uL (0.0-0.8); MONOCYTES PERCENT AUTO 6.2 % (0.0-15.0); NEUTROPHILS ABSOLUTE AUTO 7.3 K/uL (1.4-5.7); NEUTROPHILS PERCENT AUTO 68.8 % (48.0-80.0); NRBC ABSOLUTE 0 K/uL; PLATELET COUNT,PLT 171 K/uL (150-400); WHITE BLOOD CELL COUNT,WBC 10.61 K/uL (4.0-11.0)
[2023-01-07] MEDS ORDERED: CHLORPROMAZINE ONE (23:00)
[2023-01-07] MEDS ORDERED: SODIUM CHLORIDE 0.9% ONE (23:00)
[2023-01-07 23:23] LABS: A/G RATIO 1.3 (0.9-1.6); CALCIUM 8.7 mg/dL (8.5-10.1); CARBON DIOXIDE,CO2 23.7 mmol/L (21.0-32.0); CREATININE 1.5 mg/dL (0.8-1.3); EST CRCL DRUG DOSING (CG) 68.26 mL/min; MAGNESIUM 1.8 mg/dL (1.8-2.4); POTASSIUM,K 3.8 mmol/L (3.5-5.1); PROTEIN TOTAL,TP 7.2 g/dL (6.4-8.2)
[2023-01-07] MEDS ORDERED: Iopamidol 755 MG/ML 500 ML Multipack Bottle IVPUSH STA (23:49)
== END 2023-01-08 01:22 | disposition home or self-care (01) ==
LOC: MW.ED 22:31
DX: R06.6 Hiccough (principal)
CPT/HCPCS: 36415; 71260; 74177; 80053; 83735; 85025; 96365; 99284; A9270; J3230; J7030; Q9967